=== PATIENT | male | born 1950 | race African-American/Black ===

== ENCOUNTER 2016-12-29 17:04 | Inpatient (IN) | payer OTHER, BC ==
--- NOTE | 2016-12-29 17:37 | PDOC ---
History of Present Illness <Kyra West - Last Filed: 12/29/16 18:44> - History of Present Illness Initial Comments: 12/29/16 17:38 This is a 65 yo M with PMH of GERD,odynophagia due to esophagitis, B12 def anemia (recently baseline 7-8), COPD, HTN, CKD, Prostate CA, dementia and depression, recently discharged 10/21 after a month long hist due to COPD exacerbation, who is BIBEMS from skilled nursing due to rectal bleed. Per EMS, patient was bleeding for 24 hr and refusing to go to ER. Hgb in skilled nursing was 9, and patient was hypoxic in ambulance 80's O2 sat on 2L. He was also hypotensive syst 70's but improved spontaneously to 110 w/o fluids. He is a very poor historian. history obtained from record and ems. 12/29/16 18:05 12/29/16 18:10 12/29/16 18:15 12/29/16 18:21 <Khadra Hernandez - Last Filed: 12/29/16 19:03> - General Chief Complaint: Rectal Bleed Stated Complaint: RECTAL BLEEDING Time Seen by Provider: 12/29/16 17:25 Past History <Kyra West - Last Filed: 12/29/16 18:44> - Past Medical History Anemia: Yes Cancer: Yes (PROSTATE) COPD: Yes Diabetes: Yes (acute peptic ulcer.) HTN: Yes Psychiatric Problems: Yes (major depression) Other medical history: pressure ulcer sacral area. Do not intubate, DNR, living will, healthcare - Psycho/Social/Smoking Cessation Hx Anxiety: No Suicidal Ideation: No Smoking History: Unknown if ever smoked Have you smoked in the past 12 months: No If you are a former smoker, when did you quit?: 5 YRS Information on smoking cessation initiated: No Hx Alcohol Use: No Drug/Substance Use Hx: No Substance Use Type: None <Khadra Hernandez - Last Filed: 12/29/16 19:03> - Past Medical History Allergies/Adverse Reactions: Allergies Allergy/AdvReac Type Severity Reaction Status Date / Time No Known Allergies Allergy Verified 12/29/16 17:23 Home Medications: Ambulatory Orders Albuterol 0.083% Nebulizer Lashell [Ventolin 0.083%] 1 neb NEB QID 12/29/16 Albuterol Sulfate Inhaler - [Ventolin Hfa Inhaler -] 1 - 2 inh PO QID 12/29/16 Budesonide/Formeterol Fumarate [SYMBICORT 80/4.5mcg -] 1 inh PO DAILY 12/29/16 Duloxetine HCl 30 mg PO DAILY 12/29/16 Folic Acid 1 mg PO DAILY 12/29/16 Gabapentin 300 mg PO TID 12/29/16 Ipratropium Hahira 0.2 mg IH QID 12/29/16 Lactobacillus Acidophilus [Acidophilus Lactobacillus] 1 each PO DAILY 12/29/16 Prednisone [Deltasone -] 20 mg PO DAILY 12/29/16 Solifenacin Succinate [Vesicare -] 10 mg PO DAILY 12/29/16 Sucralfate 1 gm PO DAILY 12/29/16 Tamsulosin HCl 0.4 mg PO DAILY 12/29/16 Tiotropium Hahira [Spiriva] 1 inh IH DAILY 12/29/16 Tolterodine Tartrate [Tolterodine Tartrate ER] 2 mg PO DAILY 12/29/16 Verapamil HCl [Verapamil ER] 240 mg PO DAILY 12/29/16 Review of Systems - Review of Systems Able to Perform ROS?: No (dementia) <Khadra Hernandez - Last Filed: 12/29/16 19:03> *Physical Exam - Vital Signs Last Vital Signs Temp Pulse Resp BP Pulse Ox 98.8 F 106 H 18 115/81 98 12/29/16 17:05 12/29/16 17:05 12/29/16 17:05 12/29/16 17:05 12/29/16 17:05 <Kyra West - Last Filed: 12/29/16 18:44> - Vital Signs Last Vital Signs Temp Pulse Resp BP Pulse Ox 98.8 F 106 H 18 115/81 98 12/29/16 17:05 12/29/16 17:05 12/29/16 17:05 12/29/16 17:05 12/29/16 17:05 - Physical Exam Comments: 12/29/16 18:09 General: nad, confused HEENT: normocephalic, atraumatic, perrla, eomi, no scleral icterus, dry mucous membranes Neuro: CN II-XII grossly intact CV: rrr s1s2 Pulm: bibasilar crackles GI: soft, nontender, distended, hard colon appears to be impacted, no cva tenderness, normoactive bowel sounds Rectal exam: tender, tone intact, bright red blood, small external hemorrhoid Musculoskeletal: no peripheral edema 12/29/16 18:10 12/29/16 18:13 <Khadra Hernandez - Last Filed: 12/29/16 19:03> Heart Score/ECG Review #1 ECG reviewed & interpreted by me at: 18:00 (low voltage, sinus tach, no change from prior. ) <Khadra Hernandez - Last Filed: 12/29/16 19:03> ED Treatment Course - LABORATORY CBC & Chemistry Diagram: 12/29/16 18:10 12/29/16 18:10 - ADDITIONAL ORDERS Additional order review: Laboratory Results 12/29/16 18:11 Stool Occult Blood Negative 12/29/16 18:10 RBC 2.92 L MCV 86.2 MCHC 30.3 L RDW 15.6 MPV 8.1 D Neutrophils % 93.5 H Lymphocytes % 1.6 L D Monocytes % 4.6 Eosinophils % 0.0 D Basophils % 0.3 - RADIOLOGY Radiology Studies Ordered: Category Date Time Status CHEST X-RAY PORTABLE* [RAD] Stat Radiology 12/29/16 17:26 Taken <Kyra West - Last Filed: 12/29/16 18:44> - LABORATORY CBC & Chemistry Diagram: 12/29/16 18:10 12/29/16 18:10 <Khadra Hernandez - Last Filed: 12/29/16 19:03> Medical Decision Making - Medical Decision Making 12/29/16 18:44 Pt presents to the Ed after sent in from [place] for the acute onset of bright red blood per rectum. History of PE on eliquis. As per EMS, patient had been bleeding since yesterday. Found to be hypotensive with SBP in the 70s and hypoxic by EMS . Normotensive on arrival to the ED, but bright red blood on rectal exam. Hgb is stable, but INR is 5. Patient is DNR/DNI and until yesterday was D[facility]. Will treat with FFP and admit to hospitalist for GI bleed. <Kyra West - Last Filed: 12/29/16 18:44> - Medical Decision Making 12/29/16 18:11 Patient present with painless rectal bleed suspect diverticular bleed vs av malformation, r/o severe upper gib due to ulcer ekg, cbc w diff, cmp, lactic acid, stool occult blood, cxr, coag, type/screen anticipate admission and gi consult Dr Ash. 12/29/16 18:13 inr 5; patient on eliquis only . will repeat inr in case its a mistake. furter labs and and us p/d 12/29/16 18:14 cxr no acute pathology, lung jerome slightly improved from past 12/29/16 18:58 further labs p/d 12/29/16 19:02 <Khadra Hernandez - Last Filed: 12/29/16 19:03> *DC/Admit/Observation/Transfer <Kyra West - Last Filed: 12/29/16 18:44> <Khadra Hernandez - Last Filed: 12/29/16 19:03> Diagnosis at time of Disposition: Gastrointestinal hemorrhage
[2016-12-29 18:22] LABS: BASOPHIL 0.3 % (0-2.0); MCH 26.1 pg (25.7-33.7); MCHC 30.3 g/dl (32.0-35.9); MEAN CELL VOLUME 86.2 fl (80-96); MEAN PLT VOLUME 8.1 fl (7.5-11.1); NEUTROPHILS 93.5 % (42.8-82.8); PLATELET COUNT 92 K/MM3 (134-434); RDW 15.6 % (11.9-15.9); WHITE BLOOD COUNT 11.1 K/mm3 (4.0-10.0)
[2016-12-29 18:33] LABS: PROTHROMBIN TIME (PATIENT) 64.1 SEC (9.98-11.88)
[2016-12-29 18:36] LABS: ACTIVATED PTT 36.6 SECONDS (26.9-34.4)
[2016-12-29 18:46] LABS: INR 5.63 (0.82-1.09)
[2016-12-29 19:00] LABS: ALBUMIN 2.8 g/dl (3.4-5.0); ALK PHOS 31 U/L (45-117); ANION GAP 5 (8-16); BILIRUBIN,TOTAL 0.6 mg/dL (0.2-1.0); CALCIUM 8.6 mg/dL (8.5-10.1); CO2 40 mmol/L (21-32); CREATININE 3.5 mg/dL (0.7-1.3); GLUCOSE,RANDOM 159 mg/dL (74-106); SGOT/AST 16 U/L (15-37); SGPT/ALT 17 U/L (12-78); TOT PROT 4.8 g/dl (6.4-8.2)
[2016-12-29] MEDS ORDERED: INSULIN REGULAR HUMAN 100 UNITS/ML *VIAL IVPUSH ONE ×2 (19:09→23:03)
[2016-12-29] MEDS ORDERED: DEXTROSE 50%-WATER - 25 GM/50 ML VIAL IVPUSH ONE ×2 (19:09→23:03)
[2016-12-29] MEDS ORDERED: CALCIUM GLUCONATE 10% - 1,000 MG/10 ML VIAL IVPUSH ONE (19:09)
[2016-12-29] MEDS ORDERED: LACTULOSE 20 GM/30 ML UDC (FOR ORAL USE ONLY) PO ONE (19:14)
[2016-12-29] MEDS ORDERED: INSULIN (NOVOLOG) ASPART 100 UNITS/ML 10ML VIAL ONE (19:25)
[2016-12-29] MEDS ORDERED: CALCIUM GLUCONATE 10% - 1,000 MG/10 ML VIAL ONE (19:25)
[2016-12-29] MEDS ORDERED: DEXTROSE 50%-WATER 50 ML DISP.SYRIN ONE ×2 (19:25→23:38)
[2016-12-29] MEDS ORDERED: LACTULOSE 20 GM/30 ML UDC (FOR ORAL USE ONLY) ONE (19:25)
--- NOTE | 2016-12-29 20:17 | PDOC ---
*Physical Exam - Vital Signs Last Vital Signs Temp Pulse Resp BP Pulse Ox 98.8 F 96 H 17 108/66 100 12/29/16 17:05 12/29/16 20:04 12/29/16 20:04 12/29/16 20:04 12/29/16 20:04 ED Treatment Course - LABORATORY CBC & Chemistry Diagram: 12/30/16 02:17 12/30/16 02:17 - ADDITIONAL ORDERS Additional order review: Laboratory Results 12/29/16 12/29/16 12/29/16 19:20 18:11 18:10 INR PTT (Actin FS) Sodium Potassium Chloride Carbon Dioxide Anion Gap BUN Creatinine Creat Clearance w eGFR Random Glucose Lactic Acid 2.0 Calcium Total Bilirubin AST ALT Alkaline Phosphatase Total Protein Albumin Stool Occult Blood Negative Blood Type A POSITIVE Antibody Screen Negative 12/29/16 12/29/16 18:10 18:10 INR 5.63 H* D PTT (Actin FS) 36.6 H D Sodium 141 Potassium 6.0 H Chloride 96 L Carbon Dioxide 40 H D Anion Gap 5 L BUN 79 H D Creatinine 3.5 H D Creat Clearance w eGFR 17.51 Random Glucose 159 H D Lactic Acid Calcium 8.6 Total Bilirubin 0.6 AST 16 ALT 17 D Alkaline Phosphatase 31 L D Total Protein 4.8 L D Albumin 2.8 L D Stool Occult Blood Blood Type Antibody Screen 12/29/16 18:10 RBC 2.92 L MCV 86.2 MCHC 30.3 L RDW 15.6 MPV 8.1 D Neutrophils % 93.5 H Lymphocytes % 1.6 L D Monocytes % 4.6 Eosinophils % 0.0 D Basophils % 0.3 - Medications Given in the ED: ED Medications Discontinued Medications Generic Name Dose Route Start Last Admin Trade Name Freq PRN Reason Stop Dose Admin Calcium Gluconate 1,000 mg 12/29/16 19:09 12/29/16 19:35 Calcium Gluconate 10% - IVPUSH 12/29/16 19:10 1,000 mg ONCE ONE Administration Dextrose 50 ml 12/29/16 19:09 12/29/16 19:31 D50w (Vial) - IVPUSH 12/29/16 19:10 50 ml NOW ONE Administration Insulin Human Regular 10 units 12/29/16 19:09 12/29/16 19:31 Novolin R Vial *For Ivpush Or Iv Drip Only* IVPUSH 12/29/16 19:10 10 unit ONCE ONE Administration Lactulose 20 gm 12/29/16 19:14 12/29/16 19:31 Cephulac (Oral Use) PO 12/29/16 19:15 20 gm ONCE ONE Administration Medical Decision Making - Medical Decision Making 12/29/16 20:16 This patient was signed out to me pending admission Pt pending repeat INR (unclear why this is elevated) Pt pending CMP, CBC, INR Already received treatment for hyperkalemia Will admit to tele *DC/Admit/Observation/Transfer Diagnosis at time of Disposition: GI bleed - Discharge Dispostion Condition at time of disposition: Fair Admit: Yes
[2016-12-29 21:10] LABS: MCH 25.8 pg (25.7-33.7); MEAN PLT VOLUME 7.6 fl (7.5-11.1); PLATELET COUNT 92 K/MM3 (134-434); RDW 15.4 % (11.9-15.9); WHITE BLOOD COUNT 13.7 K/mm3 (4.0-10.0)
[2016-12-29 21:54] LABS: ALBUMIN 2.9 g/dl (3.4-5.0); ANION GAP 7 (8-16); BILIRUBIN,TOTAL 0.6 mg/dL (0.2-1.0); CALCIUM 8.8 mg/dL (8.5-10.1); CO2 38 mmol/L (21-32); CREATININE 3.8 mg/dL (0.7-1.3); GLUCOSE,RANDOM 107 mg/dL (74-106); SGOT/AST 10 U/L (15-37); SGPT/ALT 16 U/L (12-78); TOT PROT 4.9 g/dl (6.4-8.2)
[2016-12-29 21:55] LABS: ALK PHOS 31 U/L (45-117)
--- NOTE | 2016-12-29 22:34 | PN ---
<Christiano Anglin - Last Filed: 12/30/16 00:33> Teaching Attending Note ATTENDING PHYSICIAN STATEMENT I saw and evaluated the patient. I reviewed the resident's note and discussed the case with the resident. I agree with the resident's findings and plan as documented. SUBJECTIVE: This is a 66 yo M with PMH of GERD,odynophagia due to esophagitis, macro deficient anemia (recently baseline 7-8), COPD, HTN, CKD, Prostate CA, dementia and depression, recently discharged 10/07/16 after a month long hist due to COPD exacerbation, who [facility] from [facility] due to [facility] bleed. Patient is a poor historian at bedside. History obtained from prior records. OBJECTIVE: Last Vital Signs 3 Temp Pulse Resp BP Pulse Ox 98.8 F 96 H 17 108/66 100 12/29/16 17:05 12/29/16 20:04 12/29/16 20:04 12/29/16 20:04 12/29/16 20:04 Physical Exam: GEN: NAD HEENT: NCAT, PERRL CARD: RRR, S1 S2 RESP: CTAB ABD: NT, BWS x4 EXT: - CCE Labs: CBCD 3 WBC 13.7 K/mm3 (4.0-10.0) H 12/29/16 21:06 RBC 2.75 M/mm3 (4.00-5.60) L 12/29/16 21:06 Hgb 7.1 GM/dL (11.7-16.9) L 12/29/16 21:06 Hct 23.6 % (35.4-49) L 12/29/16 21:06 MCV 86.0 fl (80-96) 12/29/16 21:06 MCHC 30.0 g/dl (32.0-35.9) L 12/29/16 21:06 RDW 15.4 % (11.9-15.9) 12/29/16 21:06 Plt Count 92 K/MM3 (134-434) L 12/29/16 21:06 MPV 7.6 fl (7.5-11.1) 12/29/16 21:06 CMP 3 Sodium 141 mmol/L (136-145) 12/29/16 21:06 Potassium 5.4 mmol/L (3.5-5.1) H 12/29/16 21:06 Chloride 96 mmol/L (98-107) L 12/29/16 21:06 Carbon Dioxide 38 mmol/L (21-32) H 12/29/16 21:06 Anion Gap 7 (8-16) L 12/29/16 21:06 BUN 85 mg/dL (7-18) H 12/29/16 21:06 Creatinine 3.8 mg/dL (0.7-1.3) H 12/29/16 21:06 Creat Clearance w eGFR 15.92 (>60) 12/29/16 21:06 Calcium 8.8 mg/dL (8.5-10.1) 12/29/16 21:06 Total Bilirubin 0.6 mg/dL (0.2-1.0) 12/29/16 21:06 AST 10 U/L (15-37) L D 12/29/16 21:06 ALT 16 U/L (12-78) 12/29/16 21:06 Alkaline Phosphatase 31 U/L (45-117) L 12/29/16 21:06 Total Protein 4.9 g/dl (6.4-8.2) L 12/29/16 21:06 Albumin 2.9 g/dl (3.4-5.0) L 12/29/16 21:06 Imaging: ASSESSMENT AND PLAN: This is a 66 yo M with PMH of GERD,odynophagia due to esophagitis, macro deficient anemia (recently baseline 7-8), COPD, HTN, CKD, Prostate CA, dementia and depression who presents with GI bleed found to have BRBPR 1. GI Bleed - 2 large bore IVS - NPO - Type and screen - FFP for increased INR - CBC Q6H - GI consult - Transfuse hemoglobin <7 - Repeat coags in AM - Stool cult negative 2. Hyperkalemia - s/p calcium glutinate post glycerine, dextrose, and lactulose - Repeat ked - Monitor 3. MONAE on CKD - baseline creatinine 1.9 - Urine electrolytes - Consider renal ultrasound - Urine analysis - Nephrology consult 4. COPD - Continue home medications 5. DVT PPX - moderate risk. - Anemia - SCDs Documentation prepared by Christiano Anglin, acting as curator medical museum for Dr. Khai Verma MD. <Khai Verma - Last Filed: 12/30/16 03:19> Teaching Attending Note Name of Resident: Fabrizio Coburn Hypoglycemia - D50 - Recheck
[2016-12-29] MEDS ORDERED: ALBUTEROL SO4 0.083% IH SOL 2.5 MG/3 ML VIAL.NEB. NEB ONE ×2 (23:02→23:37)
--- NOTE | 2016-12-29 23:19 | HP ---
CHIEF COMPLAINT: bright red blood per rectum HISTORY OF PRESENT ILLNESS: 66 y/o M w/PMH of GERD, odynophagia, B12 def anemia, COPD, HTN, CKD, prostate ca , dementia, and depression presents to ER via ambulance for bright red blood per rectum from [facility]. Pt is poor historian and history could not be obtained from pt. According to previous notes pt was saturating in 80s in ambulance on 2L O2 and was hypotensive with systolic bp in 70s which improved to 110s on its own. In ER pt had an episode of bright red blood per rectum at approximately 1:30 AM (on 12/30/2016). No reported BMs before this time since arriving. ER course was notable for: (1) insulin, d50w, calcium gluconate, (2) CXR (3) PAST MEDICAL HISTORY: GERD, odynophagia, B12 def anemia, COPD, HTN, CKD, prostate ca, dementia, and depression Social History: Smoking: pt poor historian Alcohol:pt poor historian Drugs: pt poor historian Family History:pt poor historian Allergies No Known Allergies Allergy (Verified 12/29/16 17:23) HOME MEDICATIONS: Home Medications Medication Instructions Recorded Albuterol 0.083% Nebulizer Lashell 1 neb NEB QID 12/29/16 [Ventolin 0.083%] Albuterol Sulfate Inhaler - 1 - 2 inh PO QID 12/29/16 [Ventolin Hfa Inhaler -] Budesonide/Formeterol Fumarate 1 inh PO DAILY 12/29/16 [SYMBICORT 80/4.5mcg -] Duloxetine HCl 30 mg PO DAILY 12/29/16 Folic Acid 1 mg PO DAILY 12/29/16 Gabapentin 300 mg PO TID 12/29/16 Ipratropium Williamson 0.2 mg IH QID 12/29/16 Lactobacillus Acidophilus 1 each PO DAILY 12/29/16 [Acidophilus Lactobacillus] Prednisone [Deltasone -] 20 mg PO DAILY 12/29/16 Solifenacin Succinate [Vesicare -] 10 mg PO DAILY 12/29/16 Sucralfate 1 gm PO DAILY 12/29/16 Tamsulosin HCl 0.4 mg PO DAILY 12/29/16 Tiotropium Williamson [Spiriva] 1 inh IH DAILY 12/29/16 Tolterodine Tartrate [Tolterodine 2 mg PO DAILY 12/29/16 Tartrate ER] Verapamil HCl [Verapamil ER] 240 mg PO DAILY 12/29/16 REVIEW OF SYSTEMS Could not obtain as pt is poor historian. Vital Signs Temperature 98.8 F 12/29/16 17:05 Pulse Rate 96 H 12/29/16 20:04 Respiratory Rate 17 12/29/16 20:04 Blood Pressure 108/66 12/29/16 20:04 O2 Sat by Pulse Oximetry (%) 100 12/29/16 22:56 PHYSICAL EXAMINATION GENERAL: Awake, alert, in acute distress. Responds to name. HEAD: Normal with no signs of trauma. EYES: Pupils equal, round and reactive to light, sclera anicteric, pale sclera. EARS, NOSE, THROAT: Ears normal, nares patent, Dry mucous membranes. NECK: supple LUNGS: Auscultated anteriorly. Breath sounds equal, clear to auscultation bilaterally. HEART: Regular rate and rhythm, normal S1 and S2 ABDOMEN: +Distended abdomen, nontender, normoactive bowel sounds, no guarding, no rebound, no masses. No hepatomegaly or splenomegaly. LOWER EXTREMITIES: warm, well-perfused. No peripheral edema. NEUROLOGICAL: Pt does not answer questions appropriately. Said "no" to one question but otherwise does not speak. PSYCHIATRIC: Non-cooperative due to mental status. SKIN: Warm, dry Laboratory Results - last 24 hr 12/29/16 12/29/16 21:06 21:06 WBC 13.7 H RBC 2.75 L Hgb 7.1 L Hct 23.6 L MCV 86.0 MCHC 30.0 L RDW 15.4 Plt Count 92 L MPV 7.6 Sodium 141 Potassium 5.4 H Chloride 96 L Carbon Dioxide 38 H Anion Gap 7 L BUN 85 H Creatinine 3.8 H Creat Clearance w eGFR 15.92 Random Glucose 107 H D Calcium 8.8 Total Bilirubin 0.6 AST 10 L D ALT 16 Alkaline Phosphatase 31 L Total Protein 4.9 L Albumin 2.9 L Imaging: CXR: No signs of acute pathology, awaiting official read. Abd/Pelvis CT: This is a preliminary report by imaging developmental education instructor Exam: Noncontrast CT abdomen and pelvis Images: [id number] Clinical indication: Abdominal distention. Findings: The lung bases are clear. The patient is status post cholecystectomy. The liver, and spleen have a normal appearance. Fatty infiltration of the pancreas is noted. A 1 cm cystic hypodensity is noted in the pancreatic head (image 44) likely a side branch intraductal papillary mucinous neoplasm. The adrenal glands are unremarkable. The kidneys have a normal unenhanced appearance. No calculi are seen. There is no hydronephrosis or hydroureter. The gastrointestinal tract does not appear obstructed. No thickened or dilated bowel is seen. The appendix has a normal appearance. There is no mesenteric infiltration. The urinary bladder, prostate and seminal vesicles are unremarkable. No abdominal or pelvic adenopathy is seen. No lytic or blastic destructive osseous lesions are seen. Impression: No inflammatory process identified in the abdomen or pelvis. No abdominal mass, adenopathy or collection seen. Cystic process noted in the pancreas could represent neoplasm or less likely pseudocyst. Consider followup. THIS DOCUMENT HAS BEEN ELECTRONICALLY SIGNED Westley Escalera M.D. Active Medications Albuterol Sulfate (Ventolin 0.083% Nebulizer Soln -) amp NEB QID QUAN Budesonide/Formoterol Fumarate (Symbicort 80/4.5mcg -) 1 puff IH DAILY QUAN Folic Acid (Folic Acid -) 1 mg PO DAILY QUAN Gabapentin (Neurontin -) 300 mg PO TID QUAN Non-Formulary Medication (Solifenacin Succinate [Vesicare -]) 10 mg PO DAILY QUAN Sucralfate (Carafate Oral Suspension -) 1 gm PO DAILY QUAN Tamsulosin HCl (Flomax -) 0.4 mg PO DAILY [facility] Tiotropium Williamson (Spiriva -) 1 puff IH DAILY QUAN Tolterodine Tartrate (Detrol La -) 2 mg PO DAILY QUAN ASSESSMENT/PLAN: 66 y/o M w/PMH of GERD, odynophagia, B12 def anemia, COPD, HTN, CKD, prostate ca , dementia, and depression presents to ER via ambulance for bright red blood per rectum from [facility]. Admitted for lower GI bleed and elevated INR. -Bright red blood per rectum -Transfuse Hgb if below <7; type and screen -Pt with elevated INR, repeat INR ordered -1 unit FFP ordered -FOBT negative but pt had first BM at 1:30 am with a large amount of blood. -will order 1 unit PRBC at this time due to this BM -monitor CBC s/p PRBC -Protonix 40 mg IV bid ordered -CT abd/pelvis prelim report: Impression: No inflammatory process identified in the abdomen or pelvis. No abdominal mass, adenopathy or collection seen. Cystic process noted in the pancreas could represent neoplasm or less likely pseudocyst. Consider followup. -f/u official read -MONAE on CKD -Cr 3.8, baseline is approx 2 -UA, Urine electrolytes -Nephro consulted -If pt not urinating will need de jesus -anemia -c/w folic acid 1mg po qd -COPD -c/w spriva, symbicort, alb nebs qid -Neuropathy -c/w gabapentin 300 mg po tid -DVT ppx -in light of GI bleed will not start on AC -SCDs -FEN -No fluids at this time, pt getting FFP, 1 unit PRBC -Hyperkalemia - s/p 10 units insulin x2, Ca gluconate 1g, alb x3, monitor K+ , no peaked T waves on EKG -NPO -Dispo: -Admit to tele Visit type - Emergency Visit Emergency Visit: Yes ED Registration Date: 12/29/16 Care time: The patient presented to the Emergency Department on the above date and was hospitalized for further evaluation of their emergent condition. - New Patient This patient is new to me today: Yes Date on this admission: 12/30/16 - Critical Care Critical Care patient: No
[2016-12-29] MEDS ORDERED: INSULIN REGULAR HUMAN 100 UNITS/ML *VIAL ONE (23:38)
[2016-12-30 02:38] LABS: MCH 26.1 pg (25.7-33.7); MEAN CELL VOLUME 86.9 fl (80-96); MEAN PLT VOLUME 8.3 fl (7.5-11.1); PLATELET COUNT 105 K/MM3 (134-434); RDW 15.6 % (11.9-15.9); WHITE BLOOD COUNT 19.9 K/mm3 (4.0-10.0)
[2016-12-30 02:52] LABS: PROTHROMBIN TIME (PATIENT) 51.1 SEC (9.98-11.88)
[2016-12-30 03:03] LABS: INR 4.5 (0.82-1.09)
[2016-12-30 03:15] LABS: ANION GAP 5 (8-16); CALCIUM 8.9 mg/dL (8.5-10.1); CO2 39 mmol/L (21-32)
[2016-12-30 03:17] LABS: GLUCOSE,RANDOM 21 mg/dL (74-106)
[2016-12-30] MEDS ORDERED: DEXTROSE 50%-WATER 50 ML DISP.SYRIN ONE (03:17)
[2016-12-30] MEDS ORDERED: DEXTROSE 50%-WATER - 25 GM/50 ML VIAL IVPUSH ONE ×2 (03:21)
[2016-12-30 06:01] LABS: BASOPHIL 0.2 % (0-2.0); MCH 27.3 pg (25.7-33.7); MCHC 30.5 g/dl (32.0-35.9); MEAN CELL VOLUME 89.4 fl (80-96); NEUTROPHILS 92.4 % (42.8-82.8); RDW 15.5 % (11.9-15.9); WHITE BLOOD COUNT 15.4 K/mm3 (4.0-10.0)
[2016-12-30 06:16] LABS: INR 3.19 (0.82-1.09); PROTHROMBIN TIME (PATIENT) 35.9 SEC (9.98-11.88)
[2016-12-30 06:26] LABS: ALBUMIN 3.2 g/dl (3.4-5.0); ANION GAP 7 (8-16); CALCIUM 8.8 mg/dL (8.5-10.1); CO2 40 mmol/L (21-32); CREATININE 4.2 mg/dL (0.7-1.3); GLUCOSE,RANDOM 101 mg/dL (74-106); SGOT/AST 17 U/L (15-37); SGPT/ALT 18 U/L (12-78)
[2016-12-30] MEDS ORDERED: ALBUTEROL SO4 0.083% IH SOL 2.5 MG/3 ML VIAL.NEB. NEB ONE (06:26)
[2016-12-30] MEDS ORDERED: GABAPENTIN 100 MG CAPSULE (FP) ONE (06:26)
[2016-12-30] MEDS ORDERED: TAMSULOSIN HCL 0.4 MG CAP.ER.24H (FP) ONE (06:26)
[2016-12-30] MEDS: TAMSULOSIN HCL 0.4 MG CAP.ER.24H (FP) PO SCH (06:27)
[2016-12-30] MEDS: GABAPENTIN 300 MG CAPSULE (FP) PO SCH ×3 (06:27→21:48)
[2016-12-30] MEDS: ALBUTEROL SO4 0.083% IH SOL 2.5 MG/3 ML VIAL.NEB. NEB SCH ×3 (06:27→17:58)
[2016-12-30 06:28] LABS: ALK PHOS 38 U/L (45-117); BILIRUBIN,TOTAL 0.8 mg/dL (0.2-1.0); TOT PROT 5.6 g/dl (6.4-8.2)
[2016-12-30 06:35] LABS: MEAN PLT VOLUME 7.8 fl (7.5-11.1); PLATELET COUNT 82 K/MM3 (134-434)
[2016-12-30] MEDS ORDERED: SODIUM CHLORIDE 500 ML IV STA (06:59)
[2016-12-30] MEDS ORDERED: TOLTERODINE TARTRATE LA 2 MG CAP.SR.24H PO SCH (10:00)
[2016-12-30] MEDS ORDERED: predniSONE 20 MG TABLET (UD) PO SCH (10:00)
[2016-12-30] MEDS ORDERED: FOLIC ACID 1 MG TABLET (FP) ONE (10:24)
[2016-12-30] MEDS ORDERED: PANTOPRAZOLE SODIUM 100 ML IVPB ONE (10:25)
[2016-12-30] MEDS: SUCRALFATE 1 GM/10 ML UNIT DOSE CUPS PO SCH (10:31)
[2016-12-30] MEDS: PANTOPRAZOLE SODIUM 100 ML IVPB SCH ×2 (10:32→21:48)
[2016-12-30] MEDS: FOLIC ACID 1 MG TABLET (FP) PO SCH (10:32)
[2016-12-30] MEDS: BUDESONIDE/FORMETEROL FUMARATE 80/4.5 mcg INHALER IH SCH (11:45)
[2016-12-30] MEDS: SOLIFENACIN SUCCINATE 5 MG TAB (FP) PO SCH (11:45)
[2016-12-30] MEDS: ACLIDINIUM BROMIDE 400 MCG/INH AERO.POWD IH SCH ×2 (11:45→23:50)
--- NOTE | 2016-12-30 12:54 | EKG ---
Test Reason : Blood Pressure : / mmHG Vent. Rate : 103 BPM Atrial Rate : 103 BPM P-R Int : 116 ms QRS Dur : 074 ms QT Int : 320 ms P-R-T Axes : 075 044 003 degrees QTc Int : 419 ms SINUS TACHYCARDIA NONSPECIFIC T WAVE ABNORMALITY ABNORMAL ECG WHEN COMPARED WITH ECG OF 11-MAY-2016 16:16, T WAVE VARIATION Confirmed by JOSE FRANCISCO SALES MD [id number]) on 12/30/2016 12:54:02 PM Referred By: Confirmed By:JOSE FRANCISCO SALES MD
--- NOTE | 2016-12-30 13:38 | CONSULT ---
Consult Consult Specialty:: Nephrology Reason for Consultation:: CKD and MONAE - History of Present Illness Chief Complaint: rectal bleed History of Present Illness: Pt is a 66 year old male with pmhx of GERD, odynophargia, esophagitis, anemia, CKD, prostate cancer, HTN and depression who was sent in the ER for rectal bleed. Pt was hypoxic and hypotensive. He is lethargic and unable to give history. He desaturates when oxygen is taken off. I discussed his are with his brother and his sister. Pt was also found to have elevated INR. Family does not want any aggressive therapy. - History Source History Provided By: Medical Record - Past Medical History Cardio/Vascular: Yes: HTN Pulmonary: Yes: COPD Gastrointestinal: Yes: Ascites Renal/: Yes: Renal Inusuff, Cancer (prostate) Psych: Yes: Depression - Alcohol/Substance Use Hx Alcohol Use: No History of Substance Use: reports: None - Smoking History Smoking history: Unknown if ever smoked Have you smoked in the past 12 months: No If you are a former smoker, when did you quit?: 5 YRS - Social History Usual Living Arrangement: Alone History of Recent Travel: No Home Medications - Allergies Allergies/Adverse Reactions: Allergies Allergy/AdvReac Type Severity Reaction Status Date / Time No Known Allergies Allergy Verified 12/29/16 17:23 - Home Medications Home Medications: Ambulatory Orders Albuterol 0.083% Nebulizer Lashell [Ventolin 0.083%] 1 neb NEB QID 12/29/16 Albuterol Sulfate Inhaler - [Ventolin Hfa Inhaler -] 1 - 2 inh PO QID 12/29/16 Budesonide/Formeterol Fumarate [SYMBICORT 80/4.5mcg -] 1 inh PO DAILY 12/29/16 Duloxetine HCl 30 mg PO DAILY 12/29/16 Folic Acid 1 mg PO DAILY 12/29/16 Gabapentin 300 mg PO TID 12/29/16 Ipratropium [place] 0.2 mg IH QID 12/29/16 Lactobacillus Acidophilus [Acidophilus Lactobacillus] 1 each PO DAILY 12/29/16 Prednisone [Deltasone -] 20 mg PO DAILY 12/29/16 Solifenacin Succinate [Vesicare -] 10 mg PO DAILY 12/29/16 Sucralfate 1 gm PO DAILY 12/29/16 Tamsulosin HCl 0.4 mg PO DAILY 12/29/16 Tiotropium [place] [Spiriva] 1 inh IH DAILY 12/29/16 Tolterodine Tartrate [Tolterodine Tartrate ER] 2 mg PO DAILY 12/29/16 Verapamil HCl [Verapamil ER] 240 mg PO DAILY 12/29/16 Family Disease History - Family Disease History Family History: Unable to Obtain Review of Systems Unable to obtain ROS, reason: pt lethargic Physical Exam Vital Signs: Vital Signs Temperature 97.3 F L 12/30/16 06:14 Pulse Rate 101 H 12/30/16 13:14 Respiratory Rate 22 12/30/16 13:14 Blood Pressure 121/72 12/30/16 13:14 O2 Sat by Pulse Oximetry (%) 100 12/30/16 13:14 Constitutional: Yes: Moderate Distress Eyes: Yes: Conjunctiva Clear HENT: Yes: Atraumatic Neck: Yes: Supple Cardiovascular: Yes: S1, S2 Respiratory: Yes: On Venti-Mask Gastrointestinal: Yes: Soft Renal/: Yes: Bladder Distention Musculoskeletal: Yes: Muscle Weakness Edema: Yes Neurological: Yes: Lethargy Labs: CBC, BMP 12/30/16 05:50 12/30/16 05:50 Laboratory Tests 12/29/16 12/29/16 12/29/16 18:10 18:10 18:10 WBC Hgb 7.6 L INR 5.63 H* D Sodium Potassium Chloride Carbon Dioxide Anion Gap BUN Creatinine Random Glucose Lactic Acid 2.0 Alkaline Phosphatase Total Protein Albumin 12/29/16 12/29/16 12/30/16 21:06 21:06 02:17 WBC Hgb 7.1 L 7.3 L INR Sodium Potassium Chloride Carbon Dioxide Anion Gap BUN 85 H Creatinine 3.8 H Random Glucose Lactic Acid Alkaline Phosphatase Total Protein Albumin 12/30/16 12/30/16 12/30/16 02:17 02:17 05:50 WBC Hgb 8.8 L D INR 4.50 H* Sodium 141 Potassium 5.0 Chloride 97 L Carbon Dioxide 39 H Anion Gap 5 L BUN 89 H Creatinine 4.0 H Random Glucose Lactic Acid Alkaline Phosphatase Total Protein Albumin 12/30/16 12/30/16 12/30/16 05:50 05:50 05:50 WBC Hgb INR 3.19 H Sodium 142 Potassium 5.4 H Chloride 95 L Carbon Dioxide 40 H Anion Gap 7 L BUN 88 H Creatinine 4.2 H Random Glucose 101 D Lactic Acid 3.2 H* Alkaline Phosphatase 38 L D Total Protein 5.6 L Albumin 3.2 L 12/30/16 14:45 WBC 14.0 H Hgb 9.3 L INR Sodium Potassium Chloride Carbon Dioxide Anion Gap BUN Creatinine Random Glucose Lactic Acid Alkaline Phosphatase Total Protein Albumin Imaging - Results Chest X-ray: Report Reviewed Problem List - Problems (1) GI bleed Code(s): K92.2 - GASTROINTESTINAL HEMORRHAGE, UNSPECIFIED (2) Anemia Code(s): D64.9 - ANEMIA, UNSPECIFIED Qualifiers: Anemia type: B12 deficiency Vitamin B12 deficiency anemia type: unspecified B12 deficiency Qualified Code(s): D51.9 - Vitamin B12 deficiency anemia, unspecified (3) COPD (chronic obstructive pulmonary disease) Code(s): J44.9 - CHRONIC OBSTRUCTIVE PULMONARY DISEASE, UNSPECIFIED Qualifiers : COPD type: COPD with acute exacerbation Qualified Code(s): J44.1 - Chronic obstructive pulmonary disease with (acute) exacerbation Assessment/Plan Current Medications Generic Name Dose Route Start Last Admin Trade Name Freq PRN Reason Stop Dose Admin Aclidinium [place] 1 puff 12/30/16 10:00 12/30/16 11:45 Tudorza - IH Not Given BID QUAN Albuterol Sulfate 1 amp 12/30/16 06:00 12/30/16 17:58 Ventolin 0.083% Nebulizer Soln - NEB 1 amp QIDR QUAN Administration Budesonide/Formoterol Fumarate 1 puff 12/30/16 10:00 12/30/16 11:45 Symbicort 80/4.5mcg - IH Not Given DAILY QUAN Folic Acid 1 mg 12/30/16 10:00 12/30/16 10:32 Folic Acid - PO 1 mg DAILY QUAN Administration Gabapentin 300 mg 12/30/16 06:00 12/30/16 16:51 Neurontin - PO Not Given TID QUAN Pantoprazole Sodium 100 mls @ 200 mls/hr 12/30/16 10:00 12/30/16 10:32 Protonix 40mg Ivpb (Pre-Docked) IVPB 200 mls/hr BID QUAN Administration Solifenacin 10 mg 12/30/16 10:00 12/30/16 11:45 Vesicare - PO Not Given DAILY QUAN Sucralfate 1 gm 12/30/16 10:00 12/30/16 10:31 Carafate Oral Suspension - PO Not Given DAILY QUAN Tamsulosin HCl 0.4 mg 12/30/16 07:00 12/30/16 06:27 Flomax - PO 0.4 mg AM QUAN Administration Impression 1. MONAE 2. CKD 3. GI bleed 4. prostate cancer 5. anemia 6. elevated INR 7. respiratory failure with hypoxia 8. hyperkalemia Plan - discussed case at length with pts brother and his daughter. They do not want any aggressive therapy and want to discuss hospice care. - can give d5w at 42 cc as he was hypoglycemic - will need to clarify GOC - place de jesus of family agrees as bladder is distended - check bladder ultrasound - will follow pt - check urine lytes Dr Bragg
[2016-12-30 15:31] LABS: MCH 27.7 pg (25.7-33.7); MCHC 31.2 g/dl (32.0-35.9); MEAN CELL VOLUME 88.6 fl (80-96); PLATELET COUNT 80 K/MM3 (134-434); RDW 14.5 % (11.9-15.9)
--- NOTE | 2016-12-30 16:50 | PN ---
Physical Exam: SUBJECTIVE: Patient seen and examined at bedside. Non verbal . Lying comfortably in bed. OBJECTIVE: Vital Signs Period Temp Pulse Resp BP Sys/Myers Pulse Ox Last 24 Hr 97.3 F 92-101 17-22 121-133/68-77 99-100 GENERAL:non verbal , NAD HEAD: NC/AT EYES: PERRL,sclera anicteric, conjunctiva clear. No ptosis. ENT: dry mucous membranes. NECK: supple. LUNGS: CTAB, on venti mask HEART: RRR, S1S2 ABDOMEN: Soft, nontender, mildly distended, normoactive bowel sounds, no guarding, no rebound, no hepatosplenomegaly, no masses. EXTREMITIES: (+)edema. NEUROLOGICAL: non verbal and lethargic SKIN: scattered ecchymosis. Laboratory Results - last 24 hr 12/29/16 12/29/16 12/30/16 21:06 21:06 02:17 WBC 13.7 H 19.9 H D RBC 2.75 L 2.81 L Hgb 7.1 L 7.3 L Hct 23.6 L 24.4 L MCV 86.0 86.9 MCHC 30.0 L 30.0 L RDW 15.4 15.6 Plt Count 92 L 105 L MPV 7.6 8.3 Neutrophils % Lymphocytes % Monocytes % Eosinophils % Basophils % INR Sodium 141 Potassium 5.4 H Chloride 96 L Carbon Dioxide 38 H Anion Gap 7 L BUN 85 H Creatinine 3.8 H Creat Clearance w eGFR 15.92 POC Glucometer Random Glucose 107 H D Lactic Acid Calcium 8.8 Total Bilirubin 0.6 AST 10 L D ALT 16 Alkaline Phosphatase 31 L Total Protein 4.9 L Albumin 2.9 L 12/30/16 12/30/16 12/30/16 02:17 02:17 05:28 WBC RBC Hgb Hct MCV MCHC RDW Plt Count MPV Neutrophils % Lymphocytes % Monocytes % Eosinophils % Basophils % INR 4.50 H* Sodium 141 Potassium 5.0 Chloride 97 L Carbon Dioxide 39 H Anion Gap 5 L BUN 89 H Creatinine 4.0 H Creat Clearance w eGFR POC Glucometer [phone] Random Glucose 21 L* D Lactic Acid Calcium 8.9 Total Bilirubin AST ALT Alkaline Phosphatase Total Protein Albumin 12/30/16 12/30/16 12/30/16 05:50 05:50 05:50 WBC 15.4 H RBC 3.22 L Hgb 8.8 L D Hct 28.7 L D MCV 89.4 MCHC 30.5 L RDW 15.5 Plt Count 82 L D MPV 7.8 Neutrophils % 92.4 H Lymphocytes % 1.6 L Monocytes % 5.8 Eosinophils % 0.0 Basophils % 0.2 INR 3.19 H Sodium 142 Potassium 5.4 H Chloride 95 L Carbon Dioxide 40 H Anion Gap 7 L BUN 88 H Creatinine 4.2 H Creat Clearance w eGFR 14.18 POC Glucometer Random Glucose 101 D Lactic Acid Calcium 8.8 Total Bilirubin 0.8 D AST 17 D ALT 18 Alkaline Phosphatase 38 L D Total Protein 5.6 L Albumin 3.2 L 12/30/16 12/30/16 05:50 14:45 WBC 14.0 H RBC 3.34 L Hgb 9.3 L Hct 29.6 L MCV 88.6 MCHC 31.2 L RDW 14.5 Plt Count 80 L MPV 8.0 Neutrophils % Lymphocytes % Monocytes % Eosinophils % Basophils % INR Sodium Potassium Chloride Carbon Dioxide Anion Gap BUN Creatinine Creat Clearance w eGFR POC Glucometer Random Glucose Lactic Acid 3.2 H* Calcium Total Bilirubin AST ALT Alkaline Phosphatase Total Protein Albumin Active Medications Generic Name Dose Route Start Last Admin Trade Name Freq PRN Reason Stop Dose Admin Aclidinium [place] 1 puff 12/30/16 10:00 12/30/16 11:45 Tudorza - IH Not Given BID QUAN Albuterol Sulfate 1 amp 12/30/16 06:00 12/30/16 06:27 Ventolin 0.083% Nebulizer Soln - NEB 1 amp QIDR QUAN Administration Budesonide/Formoterol Fumarate 1 puff 12/30/16 10:00 12/30/16 11:45 Symbicort 80/4.5mcg - IH Not Given DAILY QUAN Folic Acid 1 mg 12/30/16 10:00 12/30/16 10:32 Folic Acid - PO 1 mg DAILY QUAN Administration Gabapentin 300 mg 12/30/16 06:00 12/30/16 06:27 Neurontin - PO 300 mg TID QUAN Administration Pantoprazole Sodium 100 mls @ 200 mls/hr 12/30/16 10:00 12/30/16 10:32 Protonix 40mg Ivpb (Pre-Docked) IVPB 200 mls/hr BID QUAN Administration Solifenacin 10 mg 12/30/16 10:00 12/30/16 11:45 Vesicare - PO Not Given DAILY QUAN Sucralfate 1 gm 12/30/16 10:00 12/30/16 10:31 Carafate Oral Suspension - PO Not Given DAILY QUAN Tamsulosin HCl 0.4 mg 12/30/16 07:00 12/30/16 06:27 Flomax - PO 0.4 mg AM QUAN Administration ASSESSMENT/PLAN: 66 y/o M w/PMH of GERD, odynophagia, B12 def anemia, COPD, HTN, CKD, prostate ca , dementia, and depression presents to ER via ambulance for bright red blood per rectum from retirement. Admitted for lower GI bleed and elevated INR. Problem List - Problems (1) Palliative care encounter Assessment/Plan: * After reviewing records and lengthy discussion with Sohan Barreto(brother and Proxy) the desicion has been made to withdrawal all testing and treatment except for comfort measures. * Will order palliative care consult to discuss options. (2) GI bleed Assessment/Plan: * Most likely lower gi bleed * transfused 1unit PRBC and 1 unit FFP * PPI (3) Acute on chronic renal failure Assessment/Plan: * Cr 3.8, baseline is approx 2 (4) Anemia Assessment/Plan: * likely due to acute blood loss. * will hold anticoagulation. (5) COPD (chronic obstructive pulmonary disease) Assessment/Plan: * Continue supplemental O2 via ventimask. * Bipap PRN * comfort measures Visit type - Emergency Visit Emergency Visit: Yes ED Registration Date: 12/29/16 Care time: The patient presented to the Emergency Department on the above date and was hospitalized for further evaluation of their emergent condition. - New Patient This patient is new to me today: Yes Date on this admission: 12/30/16 - Critical Care Critical Care patient: No - Discharge Referral Referred to [facility] Med [facility] No
[2016-12-30 18:06] VITALS: BMI 20.6
[2016-12-30] MEDS: DEXTROSE 5%-WATER - 1,000 ML IV SCH (19:52)
--- NOTE | 2016-12-30 20:11 | CON.GI ---
Consult Consult Specialty:: GI Referred by:: Dr Bhat Reason for Consultation:: GI bleed - History of Present Illness Chief Complaint: rectal bleed History of Present Illness: 66 M with h/o of GERD,odynophagia due to esophagitis, B12 def anemia (recently baseline 7-8), COPD, HTN, CKD, Prostate CA, dementia and depression, here in October for COPD exacerbation, sent from [place] for eval of BRBPR. Patient was hyopoxic and hypotensive on the way to the hospital but on arrival to ED he recovered somewhat. He is non-communicative at this time but spoke with his cousins at the bedside. They state the patient's brother who is in [place] instructed that nothing aggressive be done as these were the wishes of the patient. The brother is scheduled to arrive tomorrow. - History Source History Provided By: Family Member, Medical Record Limitations to Obtaining History: Clinical Condition - Past Medical History Cardio/Vascular: Yes: HTN Pulmonary: Yes: COPD Gastrointestinal: Yes: Ascites Renal/: Yes: Renal Inusuff, Cancer (prostate) Psych: Yes: Depression - Alcohol/Substance Use Hx Alcohol Use: No History of Substance Use: reports: None - Smoking History Smoking history: Unknown if ever smoked Have you smoked in the past 12 months: No If you are a former smoker, when did you quit?: 5 YRS - Social History Usual Living Arrangement: Alone History of Recent Travel: No Home Medications - Allergies Allergies/Adverse Reactions: Allergies Allergy/AdvReac Type Severity Reaction Status Date / Time No Known Allergies Allergy Verified 12/29/16 17:23 - Home Medications Home Medications: Ambulatory Orders Albuterol 0.083% Nebulizer Lashell [Ventolin 0.083%] 1 neb NEB QID 12/29/16 Albuterol Sulfate Inhaler - [Ventolin Hfa Inhaler -] 1 - 2 inh PO QID 12/29/16 Budesonide/Formeterol Fumarate [SYMBICORT 80/4.5mcg -] 1 inh PO DAILY 12/29/16 Duloxetine HCl 30 mg PO DAILY 12/29/16 Folic Acid 1 mg PO DAILY 12/29/16 Gabapentin 300 mg PO TID 12/29/16 Ipratropium [place] 0.2 mg IH QID 12/29/16 Lactobacillus Acidophilus [Acidophilus Lactobacillus] 1 each PO DAILY 12/29/16 Prednisone [Deltasone -] 20 mg PO DAILY 12/29/16 Solifenacin Succinate [Vesicare -] 10 mg PO DAILY 12/29/16 Sucralfate 1 gm PO DAILY 12/29/16 Tamsulosin HCl 0.4 mg PO DAILY 12/29/16 Tiotropium [place] [Spiriva] 1 inh IH DAILY 12/29/16 Tolterodine Tartrate [Tolterodine Tartrate ER] 2 mg PO DAILY 12/29/16 Verapamil HCl [Verapamil ER] 240 mg PO DAILY 12/29/16 Physical Exam-GI Vital Signs: Vital Signs Temperature 97.6 F 12/30/16 17:50 Pulse Rate 106 H 12/30/16 17:50 Respiratory Rate 22 12/30/16 18:36 Blood Pressure 129/68 12/30/16 17:50 O2 Sat by Pulse Oximetry (%) 100 12/30/16 18:36 Constitutional: Yes: Well Nourished, Anxious HENT: Yes: Normocephalic Cardiovascular: Yes: Tachycardia Respiratory: Yes: CTA Bilaterally Labs: CBC, BMP 12/30/16 14:45 12/30/16 05:50 INR, PTT INR 3.19 (0.82-1.09) H 12/30/16 05:50 Hepatic Panel Total Bilirubin 0.8 mg/dL (0.2-1.0) D 12/30/16 05:50 AST 17 U/L (15-37) D 12/30/16 05:50 ALT 18 U/L (12-78) 12/30/16 05:50 Alkaline Phosphatase 38 U/L (45-117) L D 12/30/16 05:50 Albumin 3.2 g/dl (3.4-5.0) L 12/30/16 05:50 Assessment/Plan Spoke with family at length. They made it clear that they want palliative care HCP will he here tomorrow to formalize the request In deference to their wishes no further w/u
--- NOTE | 2016-12-30 20:29 | PN ---
Teaching Attending Note Name of Resident: Mariusz Velazquez ATTENDING PHYSICIAN STATEMENT I saw and evaluated the patient. I reviewed the resident's note and discussed the case with the resident. I agree with the resident's findings and plan as documented. SUBJECTIVE: Lying in bed comfortably lying in bed, nonverbal OBJECTIVE: Vital Signs Temperature 97.6 F 12/30/16 17:50 Pulse Rate 106 H 12/30/16 17:50 Respiratory Rate 22 12/30/16 18:36 Blood Pressure 129/68 12/30/16 17:50 O2 Sat by Pulse Oximetry (%) 100 12/30/16 18:36 PE: per resident's note CBCD WBC 14.0 K/mm3 (4.0-10.0) H 12/30/16 14:45 RBC 3.34 M/mm3 (4.00-5.60) L 12/30/16 14:45 Hgb 9.3 GM/dL (11.7-16.9) L 12/30/16 14:45 Hct 29.6 % (35.4-49) L 12/30/16 14:45 MCV 88.6 fl (80-96) 12/30/16 14:45 MCHC 31.2 g/dl (32.0-35.9) L 12/30/16 14:45 RDW 14.5 % (11.9-15.9) 12/30/16 14:45 Plt Count 80 K/MM3 (134-434) L 12/30/16 14:45 MPV 8.0 fl (7.5-11.1) 12/30/16 14:45 CMP Sodium 142 mmol/L (136-145) 12/30/16 05:50 Potassium 5.4 mmol/L (3.5-5.1) H 12/30/16 05:50 Chloride 95 mmol/L (98-107) L 12/30/16 05:50 Carbon Dioxide 40 mmol/L (21-32) H 12/30/16 05:50 Anion Gap 7 (8-16) L 12/30/16 05:50 BUN 88 mg/dL (7-18) H 12/30/16 05:50 Creatinine 4.2 mg/dL (0.7-1.3) H 12/30/16 05:50 Creat Clearance w eGFR 14.18 (>60) 12/30/16 05:50 Random Glucose 101 mg/dL (74-106) D 12/30/16 05:50 Calcium 8.8 mg/dL (8.5-10.1) 12/30/16 05:50 Total Bilirubin 0.8 mg/dL (0.2-1.0) D 12/30/16 05:50 AST 17 U/L (15-37) D 12/30/16 05:50 ALT 18 U/L (12-78) 12/30/16 05:50 Alkaline Phosphatase 38 U/L (45-117) L D 12/30/16 05:50 Total Protein 5.6 g/dl (6.4-8.2) L 12/30/16 05:50 Albumin 3.2 g/dl (3.4-5.0) L 12/30/16 05:50 Current Medications Generic Name Dose Route Start Last Admin Trade Name Freq PRN Reason Stop Dose Admin Aclidinium [place] 1 puff 12/30/16 10:00 12/30/16 11:45 Tudorza - IH Not Given BID QUAN Albuterol Sulfate 1 amp 12/30/16 06:00 12/30/16 17:58 Ventolin 0.083% Nebulizer Soln - NEB 1 amp QIDR QUAN Administration Budesonide/Formoterol Fumarate 1 puff 12/30/16 10:00 12/30/16 11:45 Symbicort 80/4.5mcg - IH Not Given DAILY QUAN Folic Acid 1 mg 12/30/16 10:00 12/30/16 10:32 Folic Acid - PO 1 mg DAILY QUAN Administration Gabapentin 300 mg 12/30/16 06:00 12/30/16 16:51 Neurontin - PO Not Given TID QUAN Pantoprazole Sodium 100 mls @ 200 mls/hr 12/30/16 10:00 12/30/16 10:32 Protonix 40mg Ivpb (Pre-Docked) IVPB 200 mls/hr BID QUAN Administration Dextrose 1,000 mls @ 42 mls/hr 12/30/16 18:45 D5w - IV ASDIR QUAN Solifenacin 10 mg 12/30/16 10:00 12/30/16 11:45 Vesicare - PO Not Given DAILY QUAN Sucralfate 1 gm 12/30/16 10:00 12/30/16 10:31 Carafate Oral Suspension - PO Not Given DAILY [facility] Tamsulosin HCl 0.4 mg 12/30/16 07:00 12/30/16 06:27 Flomax - PO 0.4 mg AM [facility] Administration Home Medications Medication Instructions Recorded Albuterol 0.083% Nebulizer [place] 1 neb NEB QID 12/29/16 [Ventolin 0.083%] Albuterol Sulfate Inhaler - 1 - 2 inh PO QID 12/29/16 [Ventolin Hfa Inhaler -] Budesonide/Formeterol Fumarate 1 inh PO DAILY 12/29/16 [SYMBICORT 80/4.5mcg -] Duloxetine HCl 30 mg PO DAILY 12/29/16 Folic Acid 1 mg PO DAILY 12/29/16 Gabapentin 300 mg PO TID 12/29/16 Ipratropium [place] 0.2 mg IH QID 12/29/16 Lactobacillus Acidophilus 1 each PO DAILY 12/29/16 [Acidophilus Lactobacillus] Prednisone [Deltasone -] 20 mg PO DAILY 12/29/16 Solifenacin Succinate [Vesicare -] 10 mg PO DAILY 12/29/16 Sucralfate 1 gm PO DAILY 12/29/16 Tamsulosin HCl 0.4 mg PO DAILY 12/29/16 Tiotropium [place] [Spiriva] 1 inh IH DAILY 12/29/16 Tolterodine Tartrate [Tolterodine 2 mg PO DAILY 12/29/16 Tartrate ER] Verapamil HCl [Verapamil ER] 240 mg PO DAILY 12/29/16 CT abd/pelvis prelim report: Impression: No inflammatory process identified in the abdomen or pelvis. No abdominal mass, adenopathy or collection seen. Cystic process noted in the pancreas could represent neoplasm or less likely pseudocyst. ASSESSMENT AND PLAN: 66 y/o M w/PMH of GERD, odynophagia, B12 def anemia, COPD, HTN, CKD, prostate ca , dementia, and depression presents to ER via ambulance for bright red blood per rectum from residential. Admitted for lower GI bleed and elevated INR. # s/p Acute Bright red blood per rectum; Transfuse Hgb if below <7; type and screen ; Pt with elevated INR, repeat INR ordered, s/p 1 unit FFP ordered will monitor, Protonix 40 mg IV bid ordered # MONAE on CKD 3.8-->4.2 today nephro on the case # anemia c/w folic acid 1mg po qd # COPD continue spriva, symbicort, nebs. # Neuropathy continue gabapentin 300 mg po tid DVT ppx :SCDs, no AC since has GI bleed Proxy who is his brother requesting Hospice care DNR/DNI
[2016-12-31] MEDS: ALBUTEROL SO4 0.083% IH SOL 2.5 MG/3 ML VIAL.NEB. NEB SCH ×4 (06:10→17:58)
[2016-12-31] MEDS: GABAPENTIN 300 MG CAPSULE (FP) PO SCH ×3 (06:34→21:46)
[2016-12-31] MEDS: TAMSULOSIN HCL 0.4 MG CAP.ER.24H (FP) PO SCH (06:35)
[2016-12-31] MEDS: BUDESONIDE/FORMETEROL FUMARATE 80/4.5 mcg INHALER IH SCH (10:00)
[2016-12-31] MEDS ORDERED: ALBUTEROL SO4 6.7 GM HFA INHALER IH SCH ×2 (10:00→12:00)
[2016-12-31] MEDS: ACLIDINIUM BROMIDE 400 MCG/INH AERO.POWD IH SCH ×2 (10:00→21:51)
[2016-12-31] MEDS: LACTOBACILLUS ACIDOPHILUS 1 EACH TAB (FP) PO SCH (10:16)
[2016-12-31] MEDS: PANTOPRAZOLE SODIUM 100 ML IVPB SCH ×2 (10:16→21:46)
[2016-12-31] MEDS: DULoxetine HCL 30 MG CAPSULE.DR (FP) PO SCH (10:16)
[2016-12-31] MEDS: VERAPAMIL HCL 240 MG E.R. TABLET (FP) PO SCH (10:16)
[2016-12-31] MEDS: SOLIFENACIN SUCCINATE 5 MG TAB (FP) PO SCH (10:16)
[2016-12-31] MEDS: SUCRALFATE 1 GM/10 ML UNIT DOSE CUPS PO SCH (10:17)
[2016-12-31] MEDS: FOLIC ACID 1 MG TABLET (FP) PO SCH (10:17)
[2016-12-31] MEDS: IPRATROPIUM BR 0.02% 0.5 MG/2.5 ML VIAL.NEB. NEB SCH ×4 (12:16→23:00)
--- NOTE | 2016-12-31 15:45 | PN ---
Progress Note, Physician History of Present Illness: Pt seen and examined at bedside. He is much more awake and alert. He does get short of breath if oxygen is removed. - Current Medication List Current Medications: Active Medications Aclidinium [place] (Tudorza -) 1 puff IH BID [facility] Last Admin: 12/30/16 23:50 Dose: Not Given Albuterol Sulfate (Ventolin 0.083% Nebulizer Soln -) 1 amp NEB QIDR [facility] Last Admin: 12/31/16 12:16 Dose: 1 amp Albuterol Sulfate (Ventolin Hfa Inhaler -) 2 puff IH QIDR [facility] Budesonide/Formoterol Fumarate (Symbicort 80/4.5mcg -) 1 puff IH DAILY [facility] Last Admin: 12/30/16 11:45 Dose: Not Given Duloxetine HCl (Cymbalta -) 30 mg PO DAILY [facility] Last Admin: 12/31/16 10:16 Dose: 30 mg Folic Acid (Folic Acid -) 1 mg PO DAILY [facility] Last Admin: 12/31/16 10:17 Dose: 1 mg Gabapentin (Neurontin -) 300 mg PO TID [facility] Last Admin: 12/31/16 13:57 Dose: 300 mg Pantoprazole Sodium (Protonix 40mg Ivpb (Pre-Docked)) 100 mls @ 200 mls/hr IVPB BID [facility] Last Admin: 12/31/16 10:16 Dose: 200 mls/hr Dextrose (D5w -) 1,000 mls @ 42 mls/hr IV ASDIR [facility] Last Admin: 12/30/16 19:52 Dose: 42 mls/hr Ipratropium [place] (Atrovent 0.02% Nebulizer -) 1 amp NEB QID [facility] Last Admin: 12/31/16 13:36 Dose: Not Given Lactobacillus Acidophilus (Bacid -) 1 tab PO DAILY [facility] Last Admin: 12/31/16 10:16 Dose: 1 tab Solifenacin (Vesicare -) 10 mg PO DAILY [facility] Last Admin: 12/31/16 10:16 Dose: 10 mg Sucralfate (Carafate Oral Suspension -) 1 gm PO DAILY [facility] Last Admin: 12/31/16 10:17 Dose: 1 gm Tamsulosin HCl (Flomax -) 0.4 mg PO AM [facility] Last Admin: 12/31/16 06:35 Dose: Not Given Verapamil HCl (Calan Sr -) 240 mg PO DAILY [facility] Last Admin: 12/31/16 10:16 Dose: 240 mg - Objective Vital Signs: Vital Signs Temperature 97.6 F 12/31/16 10:51 Pulse Rate 121 H 12/31/16 10:51 Respiratory Rate 20 12/31/16 10:51 Blood Pressure 134/74 12/31/16 10:51 O2 Sat by Pulse Oximetry (%) 95 12/31/16 09:00 Constitutional: Yes: Calm Eyes: Yes: Conjunctiva Clear HENT: Yes: Atraumatic Neck: Yes: Supple Cardiovascular: Yes: S1, S2 Respiratory: Yes: On Venti-Mask Gastrointestinal: Yes: Soft Genitourinary: Yes: Bladder Distention Musculoskeletal: Yes: Muscle Weakness Edema: No Neurological: Yes: Confusion Labs: CBC, BMP 12/30/16 14:45 12/30/16 05:50 INR, PTT INR 3.19 (0.82-1.09) H 12/30/16 05:50 Problem List - Problems (1) GI bleed Code(s): K92.2 - GASTROINTESTINAL HEMORRHAGE, UNSPECIFIED Qualifiers: GI bleed type/associated pathology: unspecified gastrointestinal hemorrhage type Qualified Code(s): K92.2 - Gastrointestinal hemorrhage, unspecified (2) Anemia Code(s): D64.9 - ANEMIA, UNSPECIFIED Qualifiers: Anemia type: B12 deficiency Vitamin B12 deficiency anemia type: unspecified B12 deficiency Qualified Code(s): D51.9 - Vitamin B12 deficiency anemia, unspecified (3) COPD (chronic obstructive pulmonary disease) Code(s): J44.9 - CHRONIC OBSTRUCTIVE PULMONARY DISEASE, UNSPECIFIED Qualifiers : COPD type: COPD with acute exacerbation Qualified Code(s): J44.1 - Chronic obstructive pulmonary disease with (acute) exacerbation Assessment/Plan Current Medications Generic Name Dose Route Start Last Admin Trade Name Freq PRN Reason Stop Dose Admin Aclidinium [place] 1 puff 12/30/16 10:00 12/30/16 23:50 Tudorza - IH Not Given BID [facility] Albuterol Sulfate 1 amp 12/30/16 06:00 12/31/16 12:16 Ventolin 0.083% Nebulizer Soln - NEB 1 amp QIDR [facility] Administration Albuterol Sulfate 2 puff 12/31/16 12:00 Ventolin Hfa Inhaler - IH QIDR [facility] Budesonide/Formoterol Fumarate 1 puff 12/30/16 10:00 12/30/16 11:45 Symbicort 80/4.5mcg - IH Not Given DAILY [facility] Duloxetine HCl 30 mg 12/31/16 10:00 12/31/16 10:16 Cymbalta - PO 30 mg DAILY [facility] Administration Folic Acid 1 mg 12/30/16 10:00 12/31/16 10:17 Folic Acid - PO 1 mg DAILY [facility] Administration Gabapentin 300 mg 12/30/16 06:00 12/31/16 13:57 Neurontin - PO 300 mg TID [facility] Administration Pantoprazole Sodium 100 mls @ 200 mls/hr 12/30/16 10:00 12/31/16 10:16 Protonix 40mg Ivpb (Pre-Docked) IVPB 200 mls/hr BID [facility] Administration Dextrose 1,000 mls @ 42 mls/hr 12/30/16 18:45 12/30/16 19:52 D5w - IV 42 mls/hr ASDIR [facility] Administration Ipratropium [place] 1 amp 12/31/16 10:00 12/31/16 13:36 Atrovent 0.02% Nebulizer - NEB Not Given QID [facility] Lactobacillus Acidophilus 1 tab 12/31/16 10:00 12/31/16 10:16 Bacid - PO 1 tab DAILY [facility] Administration Solifenacin 10 mg 12/30/16 10:00 12/31/16 10:16 Vesicare - PO 10 mg DAILY [facility] Administration Sucralfate 1 gm 12/30/16 10:00 12/31/16 10:17 Carafate Oral Suspension - PO 1 gm DAILY [facility] Administration Tamsulosin HCl 0.4 mg 12/30/16 07:00 12/31/16 06:35 Flomax - PO Not Given AM [facility] Verapamil HCl 240 mg 12/31/16 10:00 12/31/16 10:16 Calan Sr - PO 240 mg DAILY [facility] Administration Impression 1. MONAE 2. CKD 3. GI bleed 4. prostate cancer 5. anemia 6. elevated INR 7. respiratory failure with hypoxia 8. hyperkalemia Plan - pt is more awake and alert today - will need to clarify GOC - recommend checking ultrasound kidneys and bladder along with bmp - will follow pt - check urine lytes - discussed with medical team Dr Bragg
--- NOTE | 2016-12-31 16:06 | PN ---
Physical Exam: SUBJECTIVE: Patient seen and examined at bedside. No overnight events. No new complaints. More awake and alert today. SOB improved. Denies CP,AGUILERA, palpitations, abd.pain, N/V. OBJECTIVE: Vital Signs Period Temp Pulse Resp BP Sys/Myers Pulse Ox Last 24 Hr 97.6 F-98.0 F 106-121 20-22 116-134/60-74 95-100 GENERAL:awake and alert. , NAD HEAD: NC/AT EYES: PERRL,sclera anicteric, conjunctiva clear. No ptosis. ENT: dry mucous membranes. NECK: supple. LUNGS: bilateral scattered rhonchi, on venti mask HEART: RRR, S1S2 ABDOMEN: Soft, nontender, mildly distended, normoactive bowel sounds, no guarding, no rebound, no hepatosplenomegaly, no masses. EXTREMITIES: (+)edema. NEUROLOGICAL: AAOx3, CN II-XII intact SKIN: scattered ecchymosis. Active Medications Generic Name Dose Route Start Last Admin Trade Name Freq PRN Reason Stop Dose Admin Aclidinium [place] 1 puff 12/30/16 10:00 12/30/16 23:50 Tudorza - IH Not Given BID [facility] Albuterol Sulfate 1 amp 12/30/16 06:00 12/31/16 12:16 Ventolin 0.083% Nebulizer Soln - NEB 1 amp QIDR [facility] Administration Albuterol Sulfate 2 puff 12/31/16 12:00 Ventolin Hfa Inhaler - IH QIDR [facility] Budesonide/Formoterol Fumarate 1 puff 12/30/16 10:00 12/30/16 11:45 Symbicort 80/4.5mcg - IH Not Given DAILY [facility] Duloxetine HCl 30 mg 12/31/16 10:00 12/31/16 10:16 Cymbalta - PO 30 mg DAILY [facility] Administration Folic Acid 1 mg 12/30/16 10:00 12/31/16 10:17 Folic Acid - PO 1 mg DAILY [facility] Administration Gabapentin 300 mg 12/30/16 06:00 12/31/16 13:57 Neurontin - PO 300 mg TID [facility] Administration Pantoprazole Sodium 100 mls @ 200 mls/hr 12/30/16 10:00 12/31/16 10:16 Protonix 40mg Ivpb (Pre-Docked) IVPB 200 mls/hr BID [facility] Administration Dextrose 1,000 mls @ 42 mls/hr 12/30/16 18:45 12/30/16 19:52 D5w - IV 42 mls/hr ASDIR [facility] Administration Ipratropium [place] 1 amp 12/31/16 10:00 12/31/16 13:36 Atrovent 0.02% Nebulizer - NEB Not Given QID [facility] Lactobacillus Acidophilus 1 tab 12/31/16 10:00 12/31/16 10:16 Bacid - PO 1 tab DAILY [facility] Administration Solifenacin 10 mg 12/30/16 10:00 12/31/16 10:16 Vesicare - PO 10 mg DAILY [facility] Administration Sucralfate 1 gm 12/30/16 10:00 12/31/16 10:17 Carafate Oral Suspension - PO 1 gm DAILY [facility] Administration Tamsulosin HCl 0.4 mg 12/30/16 07:00 12/31/16 06:35 Flomax - PO Not Given AM [facility] Verapamil HCl 240 mg 12/31/16 10:00 12/31/16 10:16 Calan Sr - PO 240 mg DAILY [facility] Administration ASSESSMENT/PLAN: 66 y/o M w/PMH of GERD, odynophagia, B12 def anemia, COPD, HTN, CKD, prostate ca , dementia, and depression presents to ER via ambulance for bright red blood per rectum from skilled nursing. Admitted for lower GI bleed and elevated INR. Problem List - Problems (1) Palliative care encounter Assessment/Plan: * Patient more alert and awake, able to verbalize goals of care. * He would like basic labs and test to be done to maintain quality of life. * Will order palliative care consult to discuss options. (2) GI bleed Assessment/Plan: * Most likely lower gi bleed * H/H stable * transfused 1unit PRBC and 1 unit FFP * PPI (3) Acute on chronic renal failure Assessment/Plan: * Cr 3.8, baseline is approx 2 * Renal US pending to r/o obstruction * Will obtain BMP (4) Anemia Assessment/Plan: * likely due to acute blood loss. * will hold anticoagulation. * repeat CBC in AM (5) COPD (chronic obstructive pulmonary disease) Assessment/Plan: * Continue supplemental O2 via ventimask. * Bipap PRN * Consult Dr. Logan for pulmonary. (6) DVT prophylaxis Assessment/Plan: * SCD's bilat. * no AC because of GI bleed. Visit type - Emergency Visit Emergency Visit: Yes ED Registration Date: 12/29/16 Care time: The patient presented to the Emergency Department on the above date and was hospitalized for further evaluation of their emergent condition. - New Patient This patient is new to me today: No - Critical Care Critical Care patient: No - Discharge Referral Referred to [facility] Med P.C.: No
--- NOTE | 2016-12-31 16:17 | PN ---
Teaching Attending Note Name of Resident: Mariusz Velazquez ATTENDING PHYSICIAN STATEMENT I saw and evaluated the patient. I reviewed the resident's note and discussed the case with the resident. I agree with the resident's findings and plan as documented. SUBJECTIVE: Patient is AAOx3. OBJECTIVE: Vital Signs Temperature 97.6 F 12/31/16 10:51 Pulse Rate 121 H 12/31/16 10:51 Respiratory Rate 20 12/31/16 10:51 Blood Pressure 134/74 12/31/16 10:51 O2 Sat by Pulse Oximetry (%) 95 12/31/16 09:00 CBCD WBC 14.0 K/mm3 (4.0-10.0) H 12/30/16 14:45 RBC 3.34 M/mm3 (4.00-5.60) L 12/30/16 14:45 Hgb 9.3 GM/dL (11.7-16.9) L 12/30/16 14:45 Hct 29.6 % (35.4-49) L 12/30/16 14:45 MCV 88.6 fl (80-96) 12/30/16 14:45 MCHC 31.2 g/dl (32.0-35.9) L 12/30/16 14:45 RDW 14.5 % (11.9-15.9) 12/30/16 14:45 Plt Count 80 K/MM3 (134-434) L 12/30/16 14:45 MPV 8.0 fl (7.5-11.1) 12/30/16 14:45 CMP Sodium 142 mmol/L (136-145) 12/30/16 05:50 Potassium 5.4 mmol/L (3.5-5.1) H 12/30/16 05:50 Chloride 95 mmol/L (98-107) L 12/30/16 05:50 Carbon Dioxide 40 mmol/L (21-32) H 12/30/16 05:50 Anion Gap 7 (8-16) L 12/30/16 05:50 BUN 88 mg/dL (7-18) H 12/30/16 05:50 Creatinine 4.2 mg/dL (0.7-1.3) H 12/30/16 05:50 Creat Clearance w eGFR 14.18 (>60) 12/30/16 05:50 Random Glucose 101 mg/dL (74-106) D 12/30/16 05:50 Calcium 8.8 mg/dL (8.5-10.1) 12/30/16 05:50 Total Bilirubin 0.8 mg/dL (0.2-1.0) D 12/30/16 05:50 AST 17 U/L (15-37) D 12/30/16 05:50 ALT 18 U/L (12-78) 12/30/16 05:50 Alkaline Phosphatase 38 U/L (45-117) L D 12/30/16 05:50 Total Protein 5.6 g/dl (6.4-8.2) L 12/30/16 05:50 Albumin 3.2 g/dl (3.4-5.0) L 12/30/16 05:50 Current Medications Generic Name Dose Route Start Last Admin Trade Name Freq PRN Reason Stop Dose Admin Aclidinium [place] 1 puff 12/30/16 10:00 12/30/16 23:50 Tudorza - IH Not Given BID [facility]AN Albuterol Sulfate 1 amp 12/30/16 06:00 12/31/16 12:16 Ventolin 0.083% Nebulizer Soln - NEB 1 amp QIDR [facility] Administration Albuterol Sulfate 2 puff 12/31/16 12:00 Ventolin Hfa Inhaler - IH QIDR [facility] Budesonide/Formoterol Fumarate 1 puff 12/30/16 10:00 12/30/16 11:45 Symbicort 80/4.5mcg - IH Not Given DAILY [facility] Duloxetine HCl 30 mg 12/31/16 10:00 12/31/16 10:16 Cymbalta - PO 30 mg DAILY [facility] Administration Folic Acid 1 mg 12/30/16 10:00 12/31/16 10:17 Folic Acid - PO 1 mg DAILY [facility] Administration Gabapentin 300 mg 12/30/16 06:00 12/31/16 13:57 Neurontin - PO 300 mg TID [facility] Administration Pantoprazole Sodium 100 mls @ 200 mls/hr 12/30/16 10:00 12/31/16 10:16 Protonix 40mg Ivpb (Pre-Docked) IVPB 200 mls/hr BID [facility] Administration Dextrose 1,000 mls @ 42 mls/hr 12/30/16 18:45 12/30/16 19:52 D5w - IV 42 mls/hr ASDIR [facility] Administration Ipratropium [place] 1 amp 12/31/16 10:00 12/31/16 13:36 Atrovent 0.02% Nebulizer - NEB Not Given QID [facility] Lactobacillus Acidophilus 1 tab 12/31/16 10:00 12/31/16 10:16 Bacid - PO 1 tab DAILY [facility] Administration Solifenacin 10 mg 12/30/16 10:00 12/31/16 10:16 Vesicare - PO 10 mg DAILY [facility] Administration Sucralfate 1 gm 12/30/16 10:00 12/31/16 10:17 Carafate Oral Suspension - PO 1 gm DAILY [facility] Administration Tamsulosin HCl 0.4 mg 12/30/16 07:00 12/31/16 06:35 Flomax - PO Not Given AM [facility] Verapamil HCl 240 mg 12/31/16 10:00 12/31/16 10:16 Calan Sr - PO 240 mg DAILY [facility] Administration Home Medications Medication Instructions Recorded Albuterol 0.083% Nebulizer Las[place] 1 neb NEB QID 12/29/16 [Ventolin 0.083%] Albuterol Sulfate Inhaler - 1 - 2 inh PO QID 12/29/16 [Ventolin Hfa Inhaler -] Budesonide/Formeterol Fumarate 1 inh PO DAILY 12/29/16 [SYMBICORT 80/4.5mcg -] Duloxetine HCl 30 mg PO DAILY 12/29/16 Folic Acid 1 mg PO DAILY 12/29/16 Gabapentin 300 mg PO TID 12/29/16 Ipratropium [place] 0.2 mg IH QID 12/29/16 Lactobacillus Acidophilus 1 each PO DAILY 12/29/16 [Acidophilus Lactobacillus] Prednisone [Deltasone -] 20 mg PO DAILY 12/29/16 Solifenacin Succinate [Vesicare -] 10 mg PO DAILY 12/29/16 Sucralfate 1 gm PO DAILY 12/29/16 Tamsulosin HCl 0.4 mg PO DAILY 12/29/16 Tiotropium [place] [Spiriva] 1 inh IH DAILY 12/29/16 Tolterodine Tartrate [Tolterodine 2 mg PO DAILY 12/29/16 Tartrate ER] Verapamil HCl [Verapamil ER] 240 mg PO DAILY 12/29/16 PE: per resident's note CT abd/pelvis prelim report: Impression: No inflammatory process identified in the abdomen or pelvis. No abdominal mass, adenopathy or collection seen. Cystic process noted in the pancreas could represent neoplasm or less likely pseudocyst. ASSESSMENT AND PLAN: 66 y/o M w/PMH of GERD, odynophagia, B12 def anemia, COPD, HTN, CKD, prostate ca , dementia, and depression presents to ER via ambulance for bright red blood per rectum from [facility]. Admitted for lower GI bleed and elevated INR. # Acute GI bleed s/p Acute Bright red blood per rectum; Hemoglobin level is 9.0 today, Transfuse Hgb if below <7; type and screen ; Pt with elevated INR, repeat INR ordered, s/p 1 unit FFP ordered will monitor, Protonix 40 mg IV bid ordered # MONAE on CKD 3.8-->4.2 with elevated potassium today to 5.7 , will give a dose of kayexalate , nephro on the case # anemia c/w folic acid 1mg po qd # COPD continue spriva, symbicort, nebs. continue all the meds. pulmonary consult # Neuropathy continue gabapentin 300 mg po tid DVT ppx :SCDs, no AC since has GI bleed Proxy who is his brother requesting Hospice care DNR/DNI
[2016-12-31] MEDS: ALBUTEROL SO4 6.7 GM HFA INHALER IH SCH ×2 (16:50→18:11)
[2016-12-31 17:12] LABS: ANION GAP 7 (8-16); CALCIUM 8.2 mg/dL (8.5-10.1); CO2 36 mmol/L (21-32); CREATININE 4.1 mg/dL (0.7-1.3); GLUCOSE,RANDOM 207 mg/dL (74-106)
[2016-12-31] MEDS: DEXTROSE 5%-WATER - 1,000 ML IV SCH (21:54)
[2017-01-01] MEDS: ALBUTEROL SO4 6.7 GM HFA INHALER IH SCH ×4 (00:29→18:28)
[2017-01-01] MEDS ORDERED: SODIUM POLYSTYRENE SULFONATE 15 GM/60 ML BOTTLE PO ONE (05:11)
[2017-01-01] MEDS: GABAPENTIN 300 MG CAPSULE (FP) PO SCH ×3 (06:05→21:35)
[2017-01-01] MEDS: TAMSULOSIN HCL 0.4 MG CAP.ER.24H (FP) PO SCH (06:06)
[2017-01-01] MEDS: ALBUTEROL SO4 0.083% IH SOL 2.5 MG/3 ML VIAL.NEB. NEB SCH ×3 (06:20→12:20)
[2017-01-01 09:14] LABS: BASOPHIL 0.3 % (0-2.0); EOSINOPHIL 0.2 % (0-4.5); MCH 27.4 pg (25.7-33.7); MCHC 30.9 g/dl (32.0-35.9); MEAN PLT VOLUME 7.7 fl (7.5-11.1); NEUTROPHILS 92.2 % (42.8-82.8); PLATELET COUNT 64 K/MM3 (134-434); RDW 15.2 % (11.9-15.9); WHITE BLOOD COUNT 12.2 K/mm3 (4.0-10.0)
[2017-01-01 09:28] LABS: INR 2.14 (0.82-1.09); PROTHROMBIN TIME (PATIENT) 23.9 SEC (9.98-11.88)
[2017-01-01 09:41] LABS: ALBUMIN 2.9 g/dl (3.4-5.0); ANION GAP 5 (8-16); CALCIUM 8.2 mg/dL (8.5-10.1); CO2 39 mmol/L (21-32); CREATININE 4.4 mg/dL (0.7-1.3); GLUCOSE,RANDOM 178 mg/dL (74-106); SGOT/AST 14 U/L (15-37); SGPT/ALT 16 U/L (12-78)
[2017-01-01 09:43] LABS: ALK PHOS 41 U/L (45-117); TOT PROT 5.2 g/dl (6.4-8.2)
[2017-01-01] MEDS: VERAPAMIL HCL 240 MG E.R. TABLET (FP) PO SCH (11:31)
[2017-01-01] MEDS: LACTOBACILLUS ACIDOPHILUS 1 EACH TAB (FP) PO SCH (11:31)
[2017-01-01] MEDS: DULoxetine HCL 30 MG CAPSULE.DR (FP) PO SCH (11:32)
[2017-01-01] MEDS: SUCRALFATE 1 GM/10 ML UNIT DOSE CUPS PO SCH (11:32)
[2017-01-01] MEDS: PANTOPRAZOLE SODIUM 100 ML IVPB SCH ×2 (11:32→21:35)
[2017-01-01] MEDS: FOLIC ACID 1 MG TABLET (FP) PO SCH (11:32)
[2017-01-01] MEDS: BUDESONIDE/FORMETEROL FUMARATE 80/4.5 mcg INHALER IH SCH (11:33)
[2017-01-01] MEDS: SOLIFENACIN SUCCINATE 5 MG TAB (FP) PO SCH (11:33)
[2017-01-01] MEDS: ACLIDINIUM BROMIDE 400 MCG/INH AERO.POWD IH SCH ×2 (11:34→21:35)
[2017-01-01] MEDS: IPRATROPIUM BR 0.02% 0.5 MG/2.5 ML VIAL.NEB. NEB SCH ×2 (12:20→18:17)
--- NOTE | 2017-01-01 13:26 | PN ---
Progress Note, Physician History of Present Illness: Pt seen and examined at bedside. He is lethargic today. - Current Medication List Current Medications: Active Medications Aclidinium [place] (Tudorza -) 1 puff IH BID [facility] Last Admin: 01/01/17 11:34 Dose: Not Given Albuterol Sulfate (Ventolin 0.083% Nebulizer Soln -) 1 amp NEB QIDR [facility] Last Admin: 01/01/17 12:20 Dose: 1 amp Albuterol Sulfate (Ventolin Hfa Inhaler -) 2 puff IH QIDR [facility] Last Admin: 01/01/17 11:33 Dose: 2 puff Budesonide/Formoterol Fumarate (Symbicort 80/4.5mcg -) 1 puff IH DAILY [facility] Last Admin: 01/01/17 11:33 Dose: 1 inh Duloxetine HCl (Cymbalta -) 30 mg PO DAILY [facility] Last Admin: 01/01/17 11:32 Dose: 30 mg Folic Acid (Folic Acid -) 1 mg PO DAILY [facility] Last Admin: 01/01/17 11:32 Dose: 1 mg Gabapentin (Neurontin -) 300 mg PO TID [facility] Last Admin: 01/01/17 06:05 Dose: 300 mg Pantoprazole Sodium (Protonix 40mg Ivpb (Pre-Docked)) 100 mls @ 200 mls/hr IVPB BID [facility] Last Admin: 01/01/17 11:32 Dose: 200 mls/hr Dextrose (D5w -) 1,000 mls @ 42 mls/hr IV ASDIR [facility] Last Admin: 12/31/16 21:54 Dose: 42 mls/hr Ipratropium [place] (Atrovent 0.02% Nebulizer -) 1 amp NEB QIDR [facility] Last Admin: 01/01/17 12:20 Dose: 1 amp Lactobacillus Acidophilus (Bacid -) 1 tab PO DAILY [facility] Last Admin: 01/01/17 11:31 Dose: 1 tab Solifenacin (Vesicare -) 10 mg PO DAILY [facility] Last Admin: 01/01/17 11:33 Dose: 10 mg Sucralfate (Carafate Oral Suspension -) 1 gm PO DAILY [facility] Last Admin: 01/01/17 11:32 Dose: 1 gm Tamsulosin HCl (Flomax -) 0.4 mg PO AM [facility] Last Admin: 01/01/17 06:06 Dose: 0.4 mg Verapamil HCl (Calan Sr -) 240 mg PO DAILY [facility] Last Admin: 01/01/17 11:31 Dose: 240 mg - Objective Vital Signs: Vital Signs Temperature 98.6 F 12/31/16 16:00 Pulse Rate 102 H 01/01/17 10:20 Respiratory Rate 20 12/31/16 16:00 Blood Pressure 119/60 12/31/16 16:00 O2 Sat by Pulse Oximetry (%) 95 01/01/17 10:20 Constitutional: Yes: Calm Eyes: Yes: Conjunctiva Clear HENT: Yes: Atraumatic Cardiovascular: Yes: S1, S2 Respiratory: Yes: CTA Bilaterally Gastrointestinal: Yes: Normal Bowel Sounds, Soft Genitourinary: Yes: Incontinence Edema: Yes Edema: RUE: 1+ Neurological: Yes: Lethargy Labs: CBC, BMP 01/01/17 08:35 01/01/17 08:35 INR, PTT INR 2.14 (0.82-1.09) H D 01/01/17 08:35 Problem List - Problems (1) GI bleed Code(s): K92.2 - GASTROINTESTINAL HEMORRHAGE, UNSPECIFIED Qualifiers: GI bleed type/associated pathology: unspecified gastrointestinal hemorrhage type Qualified Code(s): K92.2 - Gastrointestinal hemorrhage, unspecified (2) Anemia Code(s): D64.9 - ANEMIA, UNSPECIFIED Qualifiers: Anemia type: B12 deficiency Vitamin B12 deficiency anemia type: unspecified B12 deficiency Qualified Code(s): D51.9 - Vitamin B12 deficiency anemia, unspecified (3) COPD (chronic obstructive pulmonary disease) Code(s): J44.9 - CHRONIC OBSTRUCTIVE PULMONARY DISEASE, UNSPECIFIED Qualifiers : COPD type: COPD with acute exacerbation Qualified Code(s): J44.1 - Chronic obstructive pulmonary disease with (acute) exacerbation Assessment/Plan Current Medications Generic Name Dose Route Start Last Admin Trade Name Freq PRN Reason Stop Dose Admin Aclidinium [place] 1 puff 12/30/16 10:00 01/01/17 11:34 Tudorza - IH Not Given BID QUAN Albuterol Sulfate 1 amp 12/30/16 06:00 01/01/17 12:20 Ventolin 0.083% Nebulizer Soln - NEB 1 amp QIDR [facility] Administration Albuterol Sulfate 2 puff 12/31/16 12:00 01/01/17 11:33 Ventolin Hfa Inhaler - IH 2 puff QIDR [facility] Administration Budesonide/Formoterol Fumarate 1 puff 12/30/16 10:00 01/01/17 11:33 Symbicort 80/4.5mcg - IH 1 inh DAILY [facility] Administration Duloxetine HCl 30 mg 12/31/16 10:00 01/01/17 11:32 Cymbalta - PO 30 mg DAILY [facility] Administration Folic Acid 1 mg 12/30/16 10:00 01/01/17 11:32 Folic Acid - PO 1 mg DAILY [facility] Administration Gabapentin 300 mg 12/30/16 06:00 01/01/17 06:05 Neurontin - PO 300 mg TID [facility] Administration Pantoprazole Sodium 100 mls @ 200 mls/hr 12/30/16 10:00 01/01/17 11:32 Protonix 40mg Ivpb (Pre-Docked) IVPB 200 mls/hr BID [facility] Administration Dextrose 1,000 mls @ 42 mls/hr 12/30/16 18:45 12/31/16 21:54 D5w - IV 42 mls/hr ASDIR [facility] Administration Ipratropium [place] 1 amp 01/01/17 07:20 01/01/17 12:20 Atrovent 0.02% Nebulizer - NEB 1 amp QIDR [facility] Administration Lactobacillus Acidophilus 1 tab 12/31/16 10:00 01/01/17 11:31 Bacid - PO 1 tab DAILY [facility] Administration Solifenacin 10 mg 12/30/16 10:00 01/01/17 11:33 Vesicare - PO 10 mg DAILY [facility] Administration Sucralfate 1 gm 12/30/16 10:00 01/01/17 11:32 Carafate Oral Suspension - PO 1 gm DAILY [facility] Administration Tamsulosin HCl 0.4 mg 12/30/16 07:00 01/01/17 06:06 Flomax - PO 0.4 mg AM [facility] Administration Verapamil HCl 240 mg 12/31/16 10:00 01/01/17 11:31 Calan Sr - PO 240 mg DAILY [facility] Administration Impression 1. MONAE 2. CKD 3. GI bleed 4. prostate cancer 5. anemia 6. elevated INR 7. respiratory failure with hypoxia 8. hyperkalemia Plan - potassium is improving - cont fluids - pts brother who is the HCP is coming today to clarify GOC - renal ultrasound reviewed - will follow pt - check urine lytes, studies are not back - discussed with medical team Dr Bragg
--- NOTE | 2017-01-01 14:19 | CON.PULM ---
Consult Consult Specialty:: PULMONARY Referred by:: REINA Reason for Consultation:: COPD - History of Present Illness Chief Complaint: NONVERBAL History of Present Illness: 66 M with h/o of GERD, odynophagia due to esophagitis, B12 def anemia (recently baseline 7-8), COPD, HTN, CKD, Prostate CA, dementia and depression, here in October for COPD exacerbation, sent from [place] for eval of BRBPR. Patient was hyopoxic and hypotensive on the way to the hospital . He is non-communicative at this time. They state the patient's brother who is in [place] instructed that nothing aggressive be done as these were the wishes of the patient. The brother is scheduled to arrive tomorrow. I believe the brother is requesting hospice care. 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 Cardio/Vascular: Yes: HTN Pulmonary: Yes: COPD Gastrointestinal: Yes: Ascites Renal/: Yes: Renal Inusuff, Cancer (prostate) Psych: Yes: Depression - Alcohol/Substance Use Hx Alcohol Use: No History of Substance Use: reports: None - Smoking History Smoking history: Unknown if ever smoked Have you smoked in the past 12 months: No If you are a former smoker, when did you quit?: 5 YRS - Social History Usual Living Arrangement: Alone History of Recent Travel: No Home Medications - Allergies Allergies/Adverse Reactions: Allergies Allergy/AdvReac Type Severity Reaction Status Date / Time No Known Allergies Allergy Verified 12/29/16 17:23 - Home Medications Home Medications: Ambulatory Orders Albuterol 0.083% Nebulizer [place] [Ventolin 0.083%] 1 neb NEB QID 12/29/16 Albuterol Sulfate Inhaler - [Ventolin Hfa Inhaler -] 1 - 2 inh PO QID 12/29/16 Budesonide/Formeterol Fumarate [SYMBICORT 80/4.5mcg -] 1 inh PO DAILY 12/29/16 Duloxetine HCl 30 mg PO DAILY 12/29/16 Folic Acid 1 mg PO DAILY 12/29/16 Gabapentin 300 mg PO TID 12/29/16 Ipratropium [place] 0.2 mg IH QID 12/29/16 Lactobacillus Acidophilus [Acidophilus Lactobacillus] 1 each PO DAILY 12/29/16 Prednisone [Deltasone -] 20 mg PO DAILY 12/29/16 Solifenacin Succinate [Vesicare -] 10 mg PO DAILY 12/29/16 Sucralfate 1 gm PO DAILY 12/29/16 Tamsulosin HCl 0.4 mg PO DAILY 12/29/16 Tiotropium [place] [Spiriva] 1 inh IH DAILY 12/29/16 Tolterodine Tartrate [Tolterodine Tartrate ER] 2 mg PO DAILY 12/29/16 Verapamil HCl [Verapamil ER] 240 mg PO DAILY 12/29/16 Family Disease History - Family Disease History Family History: Unable to Obtain Review of Systems Unable to obtain ROS, reason: unable to obtain Physical Exam Vital Sings: Vital Signs Temperature 98.6 F 12/31/16 16:00 Pulse Rate 102 H 01/01/17 10:20 Respiratory Rate 20 12/31/16 16:00 Blood Pressure 119/60 12/31/16 16:00 O2 Sat by Pulse Oximetry (%) 95 01/01/17 10:20 Constitutional: Yes: Other (chronically ill) HENT: Yes: Atraumatic Neck: Yes: Trachea Midline Cardiovascular: Yes: Regular Rate and Rhythm, S1, S2 Respiratory: Yes: Diminished (b/l diffuse) Gastrointestinal: Yes: Soft Edema: No Integumentary: Yes: WNL Neurological: Yes: Pre-Existing Deficit, Other (nonverbal/difficult to arouse) Labs: CBC, BMP 01/01/17 08:35 01/01/17 08:35 rest reviewed Imaging - Results Chest X-ray: Image Reviewed Problem List - Problems (1) GI bleed Code(s): K92.2 - GASTROINTESTINAL HEMORRHAGE, UNSPECIFIED Qualifiers: GI bleed type/associated pathology: unspecified gastrointestinal hemorrhage type Qualified Code(s): K92.2 - Gastrointestinal hemorrhage, unspecified (2) Anemia Code(s): D64.9 - ANEMIA, UNSPECIFIED Qualifiers: Anemia type: B12 deficiency Vitamin B12 deficiency anemia type: unspecified B12 deficiency Qualified Code(s): D51.9 - Vitamin B12 deficiency anemia, unspecified (3) COPD (chronic obstructive pulmonary disease) Code(s): J44.9 - CHRONIC OBSTRUCTIVE PULMONARY DISEASE, UNSPECIFIED Qualifiers : COPD type: COPD with acute exacerbation Qualified Code(s): J44.1 - Chronic obstructive pulmonary disease with (acute) exacerbation Assessment/Plan HAVE ORDERED ABG BRONCHODILATORS/O2 SUPPLEMENTATION HAVE HELD KERIRZA WHILE PATIENT IS RECEIVING [facility] GOALS OF CARE TO BE DETERMINED Sudhir HURT MD
[2017-01-01 15:23] LABS: ARTERIAL BLOOD GAS BASE EXCESS 8.9 meq/l (-2-2); ARTERIAL BLOOD GAS HCO3 36.5 meq/L (22-26); ARTERIAL BLOOD GAS PO2 82.1 mmHg (80-100); ARTERIAL BLOOD GAS pH 7.28 (7.35-7.45)
[2017-01-01 15:25] LABS: ALLENS TEST POSITIVE; ART PUNCT SITE LEFT RADIAL; LPM/O2% 50%; PT. ON O2? YES; TYPE OF O2 VENTIMASK
--- NOTE | 2017-01-01 15:27 | PN ---
Physical Exam: SUBJECTIVE: Patient seen and examined at bedside. No overnight events. No new complaints. more lethargic today. Denies CP,AGUILERA, palpitations, abd.pain, N/V. OBJECTIVE: Vital Signs Period Temp Pulse Resp BP Sys/Myers Pulse Ox Last 24 Hr 98.6 F-98.8 F 102-108 20-22 105-119/60-62 95-96 GENERAL:Lethargic , NAD HEAD: NC/AT EYES: PERRL,sclera anicteric, conjunctiva clear. No ptosis. ENT: dry mucous membranes. NECK: supple. LUNGS: bilateral scattered rhonchi, on venti mask HEART: RRR, S1S2 ABDOMEN: Soft, nontender, mildly distended, normoactive bowel sounds, no guarding, no rebound, no hepatosplenomegaly, no masses. EXTREMITIES: (+)edema. NEUROLOGICAL: lethargic. SKIN: scattered ecchymosis. Laboratory Results - last 24 hr 12/31/16 01/01/17 01/01/17 15:30 08:35 08:35 WBC 12.2 H RBC 3.09 L Hgb 8.5 L Hct 27.5 L MCV 89.0 MCHC 30.9 L RDW 15.2 Plt Count 64 L MPV 7.7 Neutrophils % 92.2 H Lymphocytes % 2.5 L D Monocytes % 4.8 Eosinophils % 0.2 D Basophils % 0.3 INR 2.14 H D Puncture Site ABG pH ABG pCO2 at Pt Temp ABG pO2 at Pt Temp ABG HCO3 ABG O2 Sat (Measured) ABG O2 Content ABG Base Excess Shiva Test O2 Delivery Device Oxygen Flow Rate Sodium 141 Potassium 5.7 H Chloride 98 Carbon Dioxide 36 H Anion Gap 7 L BUN 88 H Creatinine 4.1 H Creat Clearance w eGFR Random Glucose 207 H D Calcium 8.2 L Total Bilirubin AST ALT Alkaline Phosphatase Total Protein Albumin 01/01/17 01/01/17 08:35 15:21 WBC RBC Hgb Hct MCV MCHC RDW Plt Count MPV Neutrophils % Lymphocytes % Monocytes % Eosinophils % Basophils % INR Puncture Site Left radial ABG pH 7.28 L D ABG pCO2 at Pt Temp 79.9 H* D ABG pO2 at Pt Temp 82.1 D ABG HCO3 36.5 H ABG O2 Sat (Measured) 97.0 ABG O2 Content 10.2 L ABG Base Excess 8.9 H Shiva Test Positive O2 Delivery Device Ventimask Oxygen Flow Rate 50% Sodium 138 Potassium 5.2 H Chloride 94 L Carbon Dioxide 39 H Anion Gap 5 L BUN 84 H Creatinine 4.4 H Creat Clearance w eGFR 13.44 Random Glucose 178 H Calcium 8.2 L Total Bilirubin 1.0 D AST 14 L ALT 16 Alkaline Phosphatase 41 L Total Protein 5.2 L Albumin 2.9 L Active Medications Generic Name Dose Route Start Last Admin Trade Name Freq PRN Reason Stop Dose Admin Aclidinium [place] 1 puff 12/30/16 10:00 01/01/17 11:34 Tudorza - IH Not Given BID QUAN Albuterol Sulfate 2 puff 12/31/16 12:00 01/01/17 11:33 Ventolin Hfa Inhaler - IH 2 puff QIDR QUAN Administration Budesonide/Formoterol Fumarate 1 puff 12/30/16 10:00 01/01/17 11:33 Symbicort 80/4.5mcg - IH 1 inh DAILY QUAN Administration Duloxetine HCl 30 mg 12/31/16 10:00 01/01/17 11:32 Cymbalta - PO 30 mg DAILY QUAN Administration Folic Acid 1 mg 12/30/16 10:00 01/01/17 11:32 Folic Acid - PO 1 mg DAILY QUAN Administration Gabapentin 300 mg 12/30/16 06:00 01/01/17 14:22 Neurontin - PO Not Given TID QUAN Pantoprazole Sodium 100 mls @ 200 mls/hr 12/30/16 10:00 01/01/17 11:32 Protonix 40mg Ivpb (Pre-Docked) IVPB 200 mls/hr BID QUAN Administration Dextrose 1,000 mls @ 65 mls/hr 01/01/17 13:26 D5w - IV ASDIR QUAN Ipratropium [place] 1 amp 01/01/17 07:20 01/01/17 12:20 Atrovent 0.02% Nebulizer - NEB 1 amp QIDR QUAN Administration Lactobacillus Acidophilus 1 tab 12/31/16 10:00 01/01/17 11:31 Bacid - PO 1 tab DAILY QUAN Administration Solifenacin 10 mg 12/30/16 10:00 01/01/17 11:33 Vesicare - PO 10 mg DAILY QUAN Administration Sucralfate 1 gm 12/30/16 10:00 01/01/17 11:32 Carafate Oral Suspension - PO 1 gm DAILY QUAN Administration Tamsulosin HCl 0.4 mg 12/30/16 07:00 01/01/17 06:06 Flomax - PO 0.4 mg AM QUAN Administration Verapamil HCl 240 mg 12/31/16 10:00 01/01/17 11:31 Calan Sr - PO 240 mg DAILY QUAN Administration ASSESSMENT/PLAN: Problem List - Problems (1) Palliative care encounter Assessment/Plan: * After extensive discussion with brother who is proxy palliative care with hospice in confirmed * Will order palliative care consult to discuss options. (2) GI bleed Assessment/Plan: * Most likely lower gi bleed * H/H stable * transfused 1unit PRBC and 1 unit FFP * PPI * no further labs. (3) Acute on chronic renal failure Assessment/Plan: * Renal US shows no obstruction * no further testing. * renal consult appreciated. (4) Anemia Assessment/Plan: * likely due to acute blood loss. * will hold anticoagulation. (5) COPD (chronic obstructive pulmonary disease) Assessment/Plan: * Continue supplemental O2 via ventimask. * Bipap PRN * Pulmonary consult appreciated * ABG shows acidosis with hypercapnia. (6) DVT prophylaxis Assessment/Plan: * SCD's bilat. * no AC because of GI bleed. Visit type - Emergency Visit Emergency Visit: Yes ED Registration Date: 12/29/16 Care time: The patient presented to the Emergency Department on the above date and was hospitalized for further evaluation of their emergent condition. - New Patient This patient is new to me today: No - Critical Care Critical Care patient: No - Discharge Referral Referred to [facility] Med P.C.: No
[2017-01-01] MEDS: DEXTROSE 5%-WATER - 1,000 ML IV SCH (18:26)
--- NOTE | 2017-01-01 19:11 | PN ---
Teaching Attending Note Name of Resident: Mariusz Velazquez ATTENDING PHYSICIAN STATEMENT I saw and evaluated the patient. I reviewed the resident's note and discussed the case with the resident. I agree with the resident's findings and plan as documented. SUBJECTIVE: unable to complain OBJECTIVE: lethargic, barely arousable . CV: RRR Lungs : poor air movement ,no wheezes Ext: RUE pitting edema ASSESSMENT AND PLAN: 66 y/o M w/PMH of GERD, COPD, HTN, CKD, prostate ca, dementia, and depression who presented with BRBPR 1- Rectal bleed 2- MONAE 3- acute resp failure due to COPD exacerbation 4- chronic anemia Plan : 1- case d/w by team with his HCP. HE is Hospice again 2- BIPAP and venti mask 3- breathing treatments 4- IVF 5- will try to transfer to inpatient hospice tomorrow
[2017-01-01] MEDS ORDERED: PT OWN MED DRAWER 7, Y5N ONE (21:02)
[2017-01-02] MEDS: IPRATROPIUM BR 0.02% 0.5 MG/2.5 ML VIAL.NEB. NEB SCH ×5 (06:02→23:05)
[2017-01-02] MEDS: GABAPENTIN 300 MG CAPSULE (FP) PO SCH (06:09)
[2017-01-02] MEDS: TAMSULOSIN HCL 0.4 MG CAP.ER.24H (FP) PO SCH (06:09)
[2017-01-02] MEDS: ALBUTEROL SO4 6.7 GM HFA INHALER IH SCH ×4 (08:40→17:10)
--- NOTE | 2017-01-02 08:45 | PN ---
Teaching Attending Note Name of Resident: Mariusz Velazquez ATTENDING PHYSICIAN STATEMENT I saw and evaluated the patient. I reviewed the resident's note and discussed the case with the resident. I agree with the resident's findings and plan as documented. SUBJECTIVE: no events . OBJECTIVE: lethargic, barely arousable . opens eyes and track CV: RRR Lungs : poor air movement ,no wheezes Ext: RUE pitting edema . trace pitting edema on legs ASSESSMENT AND PLAN: 66 y/o M w/PMH of GERD, COPD, HTN, CKD, prostate ca, dementia, and depression who presented with BRBPR 1- Rectal bleed 2- MONAE 3- acute resp failure due to COPD exacerbation 4- chronic anemia Plan : 1- Goals of care : Hospice. Confirmed with HCP yesterday 2- BIPAP and venti mask 3- breathing treatments 4- IVF 5- will try to transfer to inpatient hospice today if possible :
--- NOTE | 2017-01-02 09:15 | PN ---
Progress Note (short form) - Note Progress Note: Lethargic and poorly arousable. On 100% NRBM. No clinical improvement. Intake & Output 12/30/16 12/31/16 01/01/17 01/02/17 23:59 23:59 23:59 23:59 Intake Total 2538 1455 400 Output Total 300 Balance 2238 1455 400 Weight 148 lb 1 oz 142 lb 7 oz 145 lb 8 oz 150 lb 6.4 oz Last Vital Signs Temp Pulse Resp BP Pulse Ox 98.4 F 92 H 20 105/47 96 01/02/17 08:35 01/02/17 08:35 01/02/17 08:35 01/02/17 08:35 01/01/17 21:00 Active Medications Aclidinium [place] (Tudorza -) 1 puff IH BID [facility] Last Admin: 01/01/17 21:35 Dose: 1 puff Albuterol Sulfate (Ventolin Hfa Inhaler -) 2 puff IH QIDR [facility] Last Admin: 01/02/17 08:41 Dose: Not Given Budesonide/Formoterol Fumarate (Symbicort 80/4.5mcg -) 1 puff IH DAILY [facility] Last Admin: 01/01/17 11:33 Dose: 1 inh Duloxetine HCl (Cymbalta -) 30 mg PO DAILY [facility] Last Admin: 01/01/17 11:32 Dose: 30 mg Dextrose (D5w -) 1,000 mls @ 65 mls/hr IV ASDIR [facility] Last Admin: 01/01/17 18:26 Dose: 65 mls/hr Ipratropium [place] (Atrovent 0.02% Nebulizer -) 1 amp NEB QIDR [facility] Last Admin: 01/02/17 06:02 Dose: 1 amp Lactobacillus Acidophilus (Bacid -) 1 tab PO DAILY [facility] Last Admin: 01/01/17 11:31 Dose: 1 tab Solifenacin (Vesicare -) 10 mg PO DAILY [facility] Last Admin: 01/01/17 11:33 Dose: 10 mg Verapamil HCl (Calan Sr -) 240 mg PO DAILY [facility] Last Admin: 01/01/17 11:31 Dose: 240 mg Constitutional: Yes: poorly responsive, chronically ill appearing HENT: Yes: Atraumatic Neck: Yes: Trachea Midline Cardiovascular: Yes: S1, S2 Respiratory: Yes: bilateral diffuse rhonchi Gastrointestinal: Yes: Soft Edema: No Integumentary: Yes: WNL Neurological: Yes: poorly responsive Labs: Laboratory Results - last 24 hr 12/29/16 01/01/17 01/01/17 19:20 08:35 08:35 WBC 12.2 H RBC 3.09 L Hgb 8.5 L Hct 27.5 L MCV 89.0 MCHC 30.9 L RDW 15.2 Plt Count 64 L MPV 7.7 Neutrophils % 92.2 H Lymphocytes % 2.5 L D Monocytes % 4.8 Eosinophils % 0.2 D Basophils % 0.3 INR 2.14 H D Puncture Site ABG pH ABG pCO2 at Pt Temp ABG pO2 at Pt Temp ABG HCO3 ABG O2 Sat (Measured) ABG O2 Content ABG Base Excess Shiva Test O2 Delivery Device Oxygen Flow Rate Sodium Potassium Chloride Carbon Dioxide Anion Gap BUN Creatinine Creat Clearance w eGFR Random Glucose Calcium Total Bilirubin AST ALT Alkaline Phosphatase Total Protein Albumin Blood Type A POSITIVE Antibody Screen Negative Crossmatch See Detail 01/01/17 01/01/17 08:35 15:21 WBC RBC Hgb Hct MCV MCHC RDW Plt Count MPV Neutrophils % Lymphocytes % Monocytes % Eosinophils % Basophils % INR Puncture Site Left radial ABG pH 7.28 L D ABG pCO2 at Pt Temp 79.9 H* D ABG pO2 at Pt Temp 82.1 D ABG HCO3 36.5 H ABG O2 Sat (Measured) 97.0 ABG O2 Content 10.2 L ABG Base Excess 8.9 H Shiva Test Positive O2 Delivery Device Ventimask Oxygen Flow Rate 50% Sodium 138 Potassium 5.2 H Chloride 94 L Carbon Dioxide 39 H Anion Gap 5 L BUN 84 H Creatinine 4.4 H Creat Clearance w eGFR 13.44 Random Glucose 178 H Calcium 8.2 L Total Bilirubin 1.0 D AST 14 L ALT 16 Alkaline Phosphatase 41 L Total Protein 5.2 L Albumin 2.9 L Blood Type Antibody Screen Crossmatch Problem List - Problems (1) GI bleed Code(s): K92.2 - GASTROINTESTINAL HEMORRHAGE, UNSPECIFIED Qualifiers: GI bleed type/associated pathology: unspecified gastrointestinal hemorrhage type Qualified Code(s): K92.2 - Gastrointestinal hemorrhage, unspecified (2) Anemia Code(s): D64.9 - ANEMIA, UNSPECIFIED Qualifiers: Anemia type: B12 deficiency Vitamin B12 deficiency anemia type: unspecified B12 deficiency Qualified Code(s): D51.9 - Vitamin B12 deficiency anemia, unspecified (3) COPD (chronic obstructive pulmonary disease) Code(s): J44.9 - CHRONIC OBSTRUCTIVE PULMONARY DISEASE, UNSPECIFIED Qualifiers : COPD type: COPD with acute exacerbation Qualified Code(s): J44.1 - Chronic obstructive pulmonary disease with (acute) exacerbation Assessment/Plan 100% NRBM Would avoid NIPPV at this point as Lee is very high risk of aspiration Aspiration precautions BD TX DNR/DNI Agree that goal should be comfort care measures Dr Summers
[2017-01-02] MEDS ORDERED: PT OWN MED DRAWER 7, Y5N ONE (09:48)
[2017-01-02] MEDS: LACTOBACILLUS ACIDOPHILUS 1 EACH TAB (FP) PO SCH (09:51)
[2017-01-02] MEDS: VERAPAMIL HCL 240 MG E.R. TABLET (FP) PO SCH (09:51)
[2017-01-02] MEDS: DULoxetine HCL 30 MG CAPSULE.DR (FP) PO SCH (09:52)
[2017-01-02] MEDS: BUDESONIDE/FORMETEROL FUMARATE 80/4.5 mcg INHALER IH SCH (09:52)
[2017-01-02] MEDS: ACLIDINIUM BROMIDE 400 MCG/INH AERO.POWD IH SCH ×2 (09:52→21:09)
[2017-01-02] MEDS: SOLIFENACIN SUCCINATE 5 MG TAB (FP) PO SCH (09:53)
[2017-01-02] MEDS: DEXTROSE 5%-WATER - 1,000 ML IV SCH ×2 (10:02→13:41)
--- NOTE | 2017-01-02 11:18 | EKG ---
Test Reason : Blood Pressure : / mmHG Vent. Rate : 101 BPM Atrial Rate : 101 BPM P-R Int : 122 ms QRS Dur : 076 ms QT Int : 332 ms P-R-T Axes : 096 048 -25 degrees QTc Int : 430 ms SINUS TACHYCARDIA MINIMAL VOLTAGE CRITERIA FOR LVH, MAY BE NORMAL VARIANT SEPTAL INFARCT , AGE UNDETERMINED ABNORMAL ECG WHEN COMPARED WITH ECG OF 29-DEC-2016 17:47, SEPTAL INFARCT IS NOW PRESENT Confirmed by PATITO SCHWARTZ, CESAR ([id number]) on 01/02/2017 11:17:50 AM Referred By: Confirmed By:CESAR CAPUTO MD
--- NOTE | 2017-01-02 14:29 | PN ---
Progress Note, Physician History of Present Illness: Pt seen and examined at bedside. He is lethargic today. - Current Medication List Current Medications: Active Medications Aclidinium [place] (Tudorza -) 1 puff IH BID [facility] Last Admin: 01/02/17 09:52 Dose: 1 puff Albuterol Sulfate (Ventolin Hfa Inhaler -) 2 puff IH QIDR [facility] Last Admin: 01/02/17 12:45 Dose: 2 puff Budesonide/Formoterol Fumarate (Symbicort 80/4.5mcg -) 1 puff IH DAILY [facility] Last Admin: 01/02/17 09:52 Dose: 1 inh Duloxetine HCl (Cymbalta -) 30 mg PO DAILY [facility] Last Admin: 01/02/17 09:52 Dose: 30 mg Dextrose (D5w -) 1,000 mls @ 65 mls/hr IV ASDIR [facility] Last Admin: 01/02/17 13:41 Dose: Not Given Ipratropium [place] (Atrovent 0.02% Nebulizer -) 1 amp NEB QIDR [facility] Last Admin: 01/02/17 12:05 Dose: 1 amp Lactobacillus Acidophilus (Bacid -) 1 tab PO DAILY [facility] Last Admin: 01/02/17 09:51 Dose: 1 tab Solifenacin (Vesicare -) 10 mg PO DAILY [facility] Last Admin: 01/02/17 09:53 Dose: 10 mg Verapamil HCl (Calan Sr -) 240 mg PO DAILY [facility] Last Admin: 01/02/17 09:51 Dose: 240 mg - Objective Vital Signs: Vital Signs Temperature 98.4 F 01/02/17 08:35 Pulse Rate 92 H 01/02/17 08:35 Respiratory Rate 20 01/02/17 08:35 Blood Pressure 105/47 01/02/17 08:35 O2 Sat by Pulse Oximetry (%) 96 01/01/17 21:00 Constitutional: Yes: Calm Eyes: Yes: Conjunctiva Clear HENT: Yes: Atraumatic Cardiovascular: Yes: S1, S2 Respiratory: Yes: Diminished, On Venti-Mask Gastrointestinal: Yes: Soft Genitourinary: Yes: WNL Musculoskeletal: Yes: WNL Edema: Yes Edema: RUE: 1+ Neurological: Yes: Oriented Psychiatric: Yes: Oriented Labs: CBC, BMP 01/01/17 08:35 01/01/17 08:35 INR, PTT INR 2.14 (0.82-1.09) H D 01/01/17 08:35 Problem List - Problems (1) GI bleed Code(s): K92.2 - GASTROINTESTINAL HEMORRHAGE, UNSPECIFIED Qualifiers: GI bleed type/associated pathology: unspecified gastrointestinal hemorrhage type Qualified Code(s): K92.2 - Gastrointestinal hemorrhage, unspecified (2) Anemia Code(s): D64.9 - ANEMIA, UNSPECIFIED Qualifiers: Anemia type: B12 deficiency Vitamin B12 deficiency anemia type: unspecified B12 deficiency Qualified Code(s): D51.9 - Vitamin B12 deficiency anemia, unspecified (3) COPD (chronic obstructive pulmonary disease) Code(s): J44.9 - CHRONIC OBSTRUCTIVE PULMONARY DISEASE, UNSPECIFIED Qualifiers : COPD type: COPD with acute exacerbation Qualified Code(s): J44.1 - Chronic obstructive pulmonary disease with (acute) exacerbation Assessment/Plan Current Medications Generic Name Dose Route Start Last Admin Trade Name Freq PRN Reason Stop Dose Admin Aclidinium [place] 1 puff 12/30/16 10:00 01/02/17 09:52 Tudorza - IH 1 puff BID QUAN Administration Albuterol Sulfate 2 puff 12/31/16 12:00 01/02/17 12:45 Ventolin Hfa Inhaler - IH 2 puff QIDR QUAN Administration Budesonide/Formoterol Fumarate 1 puff 12/30/16 10:00 01/02/17 09:52 Symbicort 80/4.5mcg - IH 1 inh DAILY QUAN Administration Duloxetine HCl 30 mg 12/31/16 10:00 01/02/17 09:52 Cymbalta - PO 30 mg DAILY QUAN Administration Dextrose 1,000 mls @ 65 mls/hr 01/01/17 13:26 01/02/17 13:41 D5w - IV Not Given ASDIR QUAN Ipratropium [place] 1 amp 01/01/17 07:20 01/02/17 12:05 Atrovent 0.02% Nebulizer - NEB 1 amp QIDR QUAN Administration Lactobacillus Acidophilus 1 tab 12/31/16 10:00 01/02/17 09:51 Bacid - PO 1 tab DAILY QUAN Administration Solifenacin 10 mg 12/30/16 10:00 01/02/17 09:53 Vesicare - PO 10 mg DAILY QUAN Administration Verapamil HCl 240 mg 12/31/16 10:00 01/02/17 09:51 Calan Sr - PO 240 mg DAILY QUAN Administration Impression 1. MONAE 2. CKD 3. GI bleed 4. prostate cancer 5. anemia 6. elevated INR 7. respiratory failure with hypoxia 8. hyperkalemia Plan - Spoke to HCP, Sohan, at length today. Pt and family would like comfort care - they do not want any more labs ordered - they are ok with fluids if pt is not eating - pt is transitioning got Hospice - will follow PRN Dr Bragg
[2017-01-02] MEDS: LORAZEPAM CARPU-JECT 2 MG/ML DISP.SYRIN IVPUSH PRN (15:03)
--- NOTE | 2017-01-02 16:02 | PN ---
Physical Exam: SUBJECTIVE: Patient seen and examined at bedside. No overnight events. No new complaints. minimally responsive. Denies CP,AGUILERA, palpitations, abd.pain, N/V. OBJECTIVE: Vital Signs Period Temp Pulse Resp BP Sys/Myers Pulse Ox Last 24 Hr 97.9 F-98.5 F 91-101 16-20 64-130/30-57 92-96 GENERAL:Lethargic, NAD HEAD: NC/AT EYES: PERRL,sclera anicteric, conjunctiva clear. No ptosis. ENT: dry mucous membranes. NECK: supple. LUNGS: bilateral scattered rhonchi, on venti mask HEART: RRR, S1S2 ABDOMEN: Soft, nontender, mildly distended, normoactive bowel sounds, no guarding, no rebound, no hepatosplenomegaly, no masses. EXTREMITIES: (+)edema. NEUROLOGICAL: lethargic and shacking SKIN: scattered ecchymosis. Active Medications Generic Name Dose Route Start Last Admin Trade Name Freq PRN Reason Stop Dose Admin Aclidinium [place] 1 puff 12/30/16 10:00 01/02/17 09:52 Tudorza - IH 1 puff BID QUAN Administration Albuterol Sulfate 2 puff 12/31/16 12:00 01/02/17 12:45 Ventolin Hfa Inhaler - IH 2 puff QIDR QUAN Administration Budesonide/Formoterol Fumarate 1 puff 12/30/16 10:00 01/02/17 09:52 Symbicort 80/4.5mcg - IH 1 inh DAILY QUAN Administration Duloxetine HCl 30 mg 12/31/16 10:00 01/02/17 09:52 Cymbalta - PO 30 mg DAILY QUAN Administration Dextrose 1,000 mls @ 65 mls/hr 01/01/17 13:26 01/02/17 13:41 D5w - IV Not Given ASDIR QUAN Ipratropium [place] 1 amp 01/01/17 07:20 01/02/17 12:05 Atrovent 0.02% Nebulizer - NEB 1 amp QIDR QUAN Administration Lactobacillus Acidophilus 1 tab 12/31/16 10:00 01/02/17 09:51 Bacid - PO 1 tab DAILY QUAN Administration Lorazepam 0.25 mg 01/02/17 14:46 01/02/17 15:03 Ativan Injection - IVPUSH 0.25 mg Q6H PRN Administration ANXIETY Solifenacin 10 mg 12/30/16 10:00 01/02/17 09:53 Vesicare - PO 10 mg DAILY QUAN Administration Verapamil HCl 240 mg 12/31/16 10:00 01/02/17 09:51 Calan Sr - PO 240 mg DAILY QUAN Administration ASSESSMENT/PLAN: 66 y/o M w/PMH of GERD, odynophagia, B12 def anemia, COPD, HTN, CKD, prostate ca , dementia, and depression presents to ER via ambulance for bright red blood per rectum from shelter. Admitted for lower GI bleed and elevated INR. Problem List - Problems (1) Palliative care encounter Assessment/Plan: * Hospice care at [place] is pending a bed. * Palliative care consult appreciated. (2) GI bleed Assessment/Plan: * Most likely lower gi bleed * H/H stable * no further labs. (3) Acute on chronic renal failure Assessment/Plan: * Renal US shows no obstruction * no further testing. * renal consult appreciated. (4) Anemia Assessment/Plan: * likely due to acute blood loss. * will hold anticoagulation. (5) COPD (chronic obstructive pulmonary disease) Assessment/Plan: * Continue supplemental O2 via ventimask. * Bipap PRN * Pulmonary consult appreciated * ABG shows acidosis with hypercapnia. (6) DVT prophylaxis Assessment/Plan: * SCD's bilat. * no AC because of GI bleed. Visit type - Emergency Visit Emergency Visit: Yes ED Registration Date: 12/29/16 Care time: The patient presented to the Emergency Department on the above date and was hospitalized for further evaluation of their emergent condition. - New Patient This patient is new to me today: No - Critical Care Critical Care patient: No - Discharge Referral Referred to [facility] Med P.C.: No
[2017-01-03] MEDS: LORAZEPAM CARPU-JECT 2 MG/ML DISP.SYRIN IVPUSH PRN ×2 (06:33→21:16)
[2017-01-03] MEDS: ALBUTEROL SO4 6.7 GM HFA INHALER IH SCH ×3 (06:34→17:43)
[2017-01-03] MEDS: IPRATROPIUM BR 0.02% 0.5 MG/2.5 ML VIAL.NEB. NEB SCH ×4 (06:37→23:35)
[2017-01-03] MEDS: DEXTROSE 5%-WATER - 1,000 ML IV SCH ×3 (09:25→17:45)
[2017-01-03] MEDS: BUDESONIDE/FORMETEROL FUMARATE 80/4.5 mcg INHALER IH SCH (09:46)
[2017-01-03] MEDS: ACLIDINIUM BROMIDE 400 MCG/INH AERO.POWD IH SCH ×2 (09:46→21:16)
[2017-01-03] MEDS: SOLIFENACIN SUCCINATE 5 MG TAB (FP) PO SCH ×2 (09:54→10:52)
[2017-01-03] MEDS: LACTOBACILLUS ACIDOPHILUS 1 EACH TAB (FP) PO SCH ×2 (09:54→10:50)
[2017-01-03] MEDS: VERAPAMIL HCL 240 MG E.R. TABLET (FP) PO SCH ×2 (09:54→11:54)
[2017-01-03] MEDS: DULoxetine HCL 30 MG CAPSULE.DR (FP) PO SCH ×2 (09:54→10:50)
--- NOTE | 2017-01-03 15:17 | PN ---
Teaching Attending Note Name of Resident: Mariusz Velazquez ATTENDING PHYSICIAN STATEMENT I saw and evaluated the patient. I reviewed the resident's note and discussed the case with the resident. I agree with the resident's findings and plan as documented. SUBJECTIVE: no events OBJECTIVE: lethargic, comfortable CV: RRR Lungs : poor air movement ,no wheezes Ext: RUE pitting edema . trace pitting edema on legs ASSESSMENT AND PLAN: 66 y/o M w/PMH of GERD, COPD, HTN, CKD, prostate ca, dementia, and depression who presented with BRBPR 1- Rectal bleed 2- MONAE 3- acute resp failure due to COPD exacerbation 4- chronic anemia Plan : 1- Goals of care : Hospice. 2- comfortable on NC 3- breathing treatments 4- dc po meds as not awake enough to take them. 5- transfer to [facility] is pending bed availability
--- NOTE | 2017-01-03 16:24 | PN ---
Physical Exam: SUBJECTIVE:Patient seen and examined at bedside. No overnight events. No new complaints. OBJECTIVE: Vital Signs Period Temp Pulse Resp BP Sys/Myers Pulse Ox Last 24 Hr 98.0 F-98.4 F 74-104 16-20 65-113/41-66 92-98 GENERAL:Lethargic, NAD HEAD: NC/AT EYES: PERRL,sclera anicteric, conjunctiva clear. No ptosis. ENT: dry mucous membranes. NECK: supple. LUNGS: bilateral scattered rhonchi, on venti mask HEART: RRR, S1S2 ABDOMEN: Soft, nontender, mildly distended, normoactive bowel sounds, no guarding, no rebound, no hepatosplenomegaly, no masses. EXTREMITIES: (+)edema. NEUROLOGICAL: lethargic and shacking SKIN: scattered ecchymosis. Laboratory Results - last 24 hr 12/30/16 11:29 POC Glucometer 133.19625 Active Medications Generic Name Dose Route Start Last Admin Trade Name Freq PRN Reason Stop Dose Admin Aclidinium [place] 1 puff 12/30/16 10:00 01/03/17 09:46 Tudorza - IH Not Given BID QUAN Albuterol Sulfate 2 puff 12/31/16 12:00 01/03/17 11:54 Ventolin Hfa Inhaler - IH Not Given QIDR QUAN Budesonide/Formoterol Fumarate 1 puff 12/30/16 10:00 01/03/17 09:46 Symbicort 80/4.5mcg - IH Not Given DAILY QUAN Dextrose 1,000 mls @ 65 mls/hr 01/01/17 13:26 01/03/17 13:40 D5w - IV Not Given ASDIR QUAN Ipratropium [place] 1 amp 01/01/17 07:20 01/03/17 10:50 Atrovent 0.02% Nebulizer - NEB 1 amp QIDR QUAN Administration Lactobacillus Acidophilus 1 tab 12/31/16 10:00 01/03/17 10:50 Bacid - PO 1 tab DAILY QUAN Administration Lorazepam 0.25 mg 01/02/17 14:46 01/03/17 06:33 Ativan Injection - IVPUSH 0.25 mg Q6H PRN Administration ANXIETY ASSESSMENT/PLAN: 66 y/o M w/PMH of GERD, odynophagia, B12 def anemia, COPD, HTN, CKD, prostate ca , dementia, and depression presents to ER via ambulance for bright red blood per rectum from custodial. Admitted for lower GI bleed and elevated INR. Problem List - Problems (1) Palliative care encounter Assessment/Plan: * Hospice care at [place] is pending a bed. * Palliative care consult appreciated. (2) GI bleed Assessment/Plan: * Most likely lower gi bleed * H/H stable * no further labs. (3) Acute on chronic renal failure Assessment/Plan: * Renal US shows no obstruction * no further testing. * renal consult appreciated. (4) Anemia Assessment/Plan: * likely due to acute blood loss. * will hold anticoagulation. (5) COPD (chronic obstructive pulmonary disease) Assessment/Plan: * Continue supplemental O2 via ventimask. * Bipap PRN * Pulmonary consult appreciated * ABG shows acidosis with hypercapnia. (6) DVT prophylaxis Assessment/Plan: * SCD's bilat. * no AC because of GI bleed. Visit type - Emergency Visit Emergency Visit: Yes ED Registration Date: 12/29/16 Care time: The patient presented to the Emergency Department on the above date and was hospitalized for further evaluation of their emergent condition. - New Patient This patient is new to me today: No - Critical Care Critical Care patient: No
[2017-01-04] MEDS: IPRATROPIUM BR 0.02% 0.5 MG/2.5 ML VIAL.NEB. NEB SCH ×4 (06:58→23:35)
[2017-01-04] MEDS: ALBUTEROL SO4 6.7 GM HFA INHALER IH SCH ×3 (07:56→17:05)
[2017-01-04] MEDS: BUDESONIDE/FORMETEROL FUMARATE 80/4.5 mcg INHALER IH SCH (09:51)
[2017-01-04] MEDS: ACLIDINIUM BROMIDE 400 MCG/INH AERO.POWD IH SCH ×2 (09:51→21:35)
[2017-01-04] MEDS: LACTOBACILLUS ACIDOPHILUS 1 EACH TAB (FP) PO SCH (10:11)
[2017-01-04] MEDS: DEXTROSE 5%-WATER - 1,000 ML IV SCH ×2 (10:17→15:04)
--- NOTE | 2017-01-04 16:17 | PN ---
Progress Note (short form) - Note Progress Note: Subjective: unable to obtain hx . no events Objective: Vital Signs: Last Vital Signs Temp Pulse Resp BP Pulse Ox 98.3 F 101 H 18 114/63 80 L 01/04/17 10:00 01/04/17 11:40 01/04/17 10:00 01/04/17 10:00 01/04/17 11:40 Physical Exam: lethargic, comfortable CV: RRR Lungs : poor air movement ,no wheezes Ext: RUE pitting edema . trace pitting edema on legs ASSESSMENT AND PLAN: 66 y/o M w/PMH of GERD, COPD, HTN, CKD, prostate ca, dementia, and depression who presented with BRBPR 1- Rectal bleed 2- MONAE 3- acute resp failure due to COPD exacerbation 4- chronic anemia Plan : 1- Goals of care : Hospice. 2- comfortable on NC but hypoxic to 80s. add venti mask 50% 3- breathing treatments 4- transfer to [facility] is pending bed availability d/w CM Visit type - Emergency Visit Emergency Visit: Yes ED Registration Date: 12/29/16 Care time: The patient presented to the Emergency Department on the above date and was hospitalized for further evaluation of their emergent condition. - New Patient This patient is new to me today: No - Critical Care Critical Care patient: No
[2017-01-04 17:12] VITALS: BP 121/72; TEMP 97
[2017-01-05] MEDS: ALBUTEROL SO4 6.7 GM HFA INHALER IH SCH ×3 (01:24→11:56)
[2017-01-05] MEDS: IPRATROPIUM BR 0.02% 0.5 MG/2.5 ML VIAL.NEB. NEB SCH ×2 (07:05→11:15)
[2017-01-05] MEDS: BUDESONIDE/FORMETEROL FUMARATE 80/4.5 mcg INHALER IH SCH (10:55)
[2017-01-05] MEDS: ACLIDINIUM BROMIDE 400 MCG/INH AERO.POWD IH SCH (10:55)
[2017-01-05] MEDS: LACTOBACILLUS ACIDOPHILUS 1 EACH TAB (FP) PO SCH (10:55)
--- NOTE | 2017-01-05 10:58 | DS ---
Physical Examination Vital Signs: Vital Signs Temperature 97 F L 01/04/17 16:15 Pulse Rate 97 H 01/04/17 16:15 Respiratory Rate 18 01/04/17 21:00 Blood Pressure 121/72 01/04/17 16:15 O2 Sat by Pulse Oximetry (%) 80 L 01/04/17 11:40 Findings/Remarks: no events over night . unable to obtain hx Constitutional: Yes: No Distress, Calm, Other (unconscious) HENT: Yes: Atraumatic, Normocephalic Cardiovascular: Yes: Regular Rate and Rhythm Respiratory: Yes: Other (poor air entry) Gastrointestinal: Yes: Normal Bowel Sounds, Soft, Distention Extremities: Yes: Other (RUE edema, improved) Labs: CBC, BMP 01/01/17 08:35 01/01/17 08:35 Discharge Summary Reason For Visit: GI BLEED Current Active Problems DVT prophylaxis (Acute) GI bleed (Acute) Palliative care encounter (Acute) Respiratory failure (Acute) Hospital Course: Dc diagnoses : 1- Rectal bleed 2- MONAE 3- acute resp failure due to COPD exacerbation 4- chronic anemia Course : 66 y/o M w/PMH of GERD, COPD, HTN, CKD, prostate ca, dementia, and depression who presented with [facility] from [place]. he was also found to be hypotensive and hypoxic at presenteation CT scan of abd /P showed no acute abnormality he was seen by GI and was not scoped due to his resp status. he was treated for COPD exacerbation and required BIPAP and venti mask. He was also treated for MONAE with Cr reached 4 . seen by [facility] and was given IVF. family decided to have pt with hospice care . and plan was to transfer to [facility] HE is comfortable , oral meds stopped as he can't eat and unconscious . time spent 15 min Condition: Guarded - Instructions Diet, Activity, Other Instructions: Hospice care Disposition: TRANSFER ACUTE CARE/OTHER HOSP - Home Medications Comprehensive Discharge Medication List: Ambulatory Orders Ipratropium 0.02% Nebulizer [Atrovent 0.02% Nebulizer -] 1 amp NEB QIDR amp 08/23 This patient is new to me today: No Emergency Visit: Yes ED Registration Date: 12/29/16 Care time: The patient presented to the Emergency Department on the above date and was hospitalized for further evaluation of their emergent condition. Critical Care patient: No - Discharge Referral Referred to [facility] No
[2017-01-05 11:54] VITALS: PULSE 105
== END 2017-01-05 12:19 | disposition hospice, inpatient (51) | DRG 377 ==
LOC: JER 17:04 → JERBED 20:17 → UNDOADMIN 20:21 → J8W 12-30 13:41
PROVIDERS: ADMIT Internal Medicine; ATTEND Internal Medicine
PROC: 30233N1 Transfusion of Nonautologous Red Blood Cells into Peripheral Vein, Percutaneous Approach (ICD-10-PCS; principal; 2016-12-30)
PROC: 30233L1 Transfusion of Nonautologous Fresh Plasma into Peripheral Vein, Percutaneous Approach (ICD-10-PCS; 2016-12-30)
PROC: 30233K1 Transfusion of Nonautologous Frozen Plasma into Peripheral Vein, Percutaneous Approach (ICD-10-PCS; 2016-12-30)
DX: K92.2 Gastrointestinal hemorrhage, unspecified (principal); J96.01 Acute respiratory failure with hypoxia; J44.1 Chronic obstructive pulmonary disease with (acute) exacerbation; N17.9 Acute kidney failure, unspecified; D62 Acute posthemorrhagic anemia; K21.9 Gastro-esophageal reflux disease without esophagitis; I12.9 Hypertensive chronic kidney disease with stage 1 through stage 4 chronic kidney disease, or unspecified chronic kidney disease; N18.9 Chronic kidney disease, unspecified; F03.90 Unspecified dementia, unspecified severity, without behavioral disturbance, psychotic disturbance, mood disturbance, and anxiety; I95.9 Hypotension, unspecified; Z85.46 Personal history of malignant neoplasm of prostate; F32.9 Major depressive disorder, single episode, unspecified; E87.5 Hyperkalemia; R79.1 Abnormal coagulation profile; G62.9 Polyneuropathy, unspecified
CPT/HCPCS: 36415; 36430; 36600; 71010-TC; 74176-TC; 76775-TC; 76856-TC; 80048; 80053; 82272; 82803; 83605; 85025; 85027; 85610; 85730; 86850; 86900; 86901; 86922; 93005; 93010; 94640; 99285-25; P9017; P9058